=== PATIENT | male | born 1965 | race Two or more races ===

== ENCOUNTER 2016-08-15 20:46 | Inpatient (IN) | payer MEDICAID, OTHER ==
[~2016-08-15] VITALS: Ht 167.6 cm; Wt 95.3 kg
--- NOTE | 2016-08-15 20:47 | NUR ---
PT "WAS IN HOLDING CELL AND STARTED THREATENING TO HARM SELF AND OTHERS". GOWNED PT . AWAITING MD ORDER.
[2016-08-15 21:10] LABS: BASOPHILS # (AUTO) 0.1 /CMM (0.0-0.2); BASOPHILS % (AUTO) 0.8 % (0.0-2.0); EOSINOPHILS # (AUTO) 0.3 /CMM (0.0-0.7); EOSINOPHILS % (AUTO) 4.1 % (0.0-6.0); HEMATOCRIT 45 % (39-51); HEMOGLOBIN 14.8 g/dL (13.5-17.5); LYMPHOCYTES # (AUTO) 2.2 /CMM (0.8-4.8); LYMPHOCYTES % (AUTO) 27.7 % (20.0-44.0); MEAN CORPUSCULAR HEMOGLOBIN 31 PG (26.0-33.0); MEAN CORPUSCULAR HGB CONC 33 g/dl (31.0-36.0); MEAN CORPUSCULAR VOLUME 94 fL (80-96); MONOCYTES # (AUTO) 0.8 /CMM (0.1-1.30); MONOCYTES % (AUTO) 10.2 % (2.0-12.0); NEUTROPHILS # (AUTO) 4.7 /CMM (1.8-8.9); NEUTROPHILS % (AUTO) 57.2 % (43.0-81.0); PLATELET COUNT (AUTO) 254 /CMM (150-450); RDW COEFFICIENT OF VARIATION 12.7 (11.5-15.0); RED BLOOD CELL COUNT(AUTO) 4.82 MIL/uL (4.5-6.0); WHITE BLOOD COUNT (AUTO) 8.1 K/uL (4.3-11.0)
[2016-08-15 21:24] LABS: ALANINE AMINOTRANSFERASE 34 U/L (12-78); ALBUMIN 2.9 g/dL (3.4-5.0); ALCOHOL, BLOOD 111 mg/dL (0-0); ALKALINE PHOSPHATASE 78 U/L (46-116); ASPARTATE AMINOTRANSFERASE 46 U/L (15-37); BILIRUBIN,DIRECT 0.1 mg/dL (0.0-0.2); BILIRUBIN,TOTAL 0.3 mg/dL (0.2-1.0); CALCIUM, SERUM 8.2 mg/dL (8.5-10.1); CARBON DIOXIDE 21 mmol/L (21-32); CHLORIDE 109 mmol/L (98-107); CREATININE 2.1 mg/dL (0.6-1.3); GLUCOSE 102 mg/dL (74-106); POTASSIUM 3.8 mmol/L (3.5-5.1); SALICYLATE 3.9 mg/dL (2.8-20.0); SODIUM SERUM 142 mmol/L (136-145); UREA NITROGEN, BLOOD 27 mg/dL (7-18)
[2016-08-15 21:25] LABS: ACETAMINOPHEN < 10 ug/ml (10-30)
--- NOTE | 2016-08-15 21:28 | NUR ---
PT COMBATIVE, WILL WAIT UNTIL READY FOR CT SCAN. DR. GARZA IS AWARE.
--- NOTE | 2016-08-15 22:07 | NUR ---
CALLED NURSING SUP. FOR TELE BED
--- NOTE | 2016-08-15 22:27 | NUR ---
PT ASSIGNED TO 306-2
--- NOTE | 2016-08-15 22:57 | NUR ---
DR.RUTHERFORD EDU IRON HANDLER
[2016-08-15] MEDS ORDERED: LITH300T PO (23:10)
[2016-08-15] MEDS ORDERED: LISI-603 PO (23:10)
[2016-08-15] MEDS ORDERED: QUET200T PO (23:10)
[2016-08-15] MEDS ORDERED: LAMO100T PO (23:10)
[2016-08-15] MEDS ORDERED: ASPI81TA44 PO (23:10)
[2016-08-15] MEDS ORDERED: SIMV20TA6 PO (23:10)
[2016-08-15] MEDS ORDERED: METO25TA6 PO (23:10)
[2016-08-15] MEDS ORDERED: GEMF600T3 PO (23:10)
[2016-08-15] MEDS ORDERED: CLON0.1T PO (23:10)
[2016-08-15] MEDS ORDERED: AMLO10TA2 PO (23:10)
--- NOTE | 2016-08-15 23:13 | NUR ---
GAVE REPORT TO SRINIVASAN 306-2 DX ACUTE RENAL INSUFFICIENCY, ALTERED MENTAL STATUS. TELEMETRY. TRANSFER VIA ACLS PROTOCOL. DR SON ADMITTING.
[2016-08-15 23:30] VITALS: BP 161/106
[2016-08-15] MEDS ORDERED: MAGNESIUM HYDROXIDE 30 ML UDC PO PRN (23:30)
[2016-08-15] MEDS ORDERED: ONDANSETRON HCL/PF 4 MG/2 ML VIAL IVP PRN (23:30)
[2016-08-15] MEDS ORDERED: ZOLPIDEM TARTRATE 5 MG TABLET PO PRN (23:30)
[2016-08-15] MEDS ORDERED: HYDROCODONE/APAP 5/325MG 1 EACH TABLET PO PRN (23:30)
[2016-08-15] MEDS ORDERED: Z GUARD REMEDY 2 OZ OINT TP PRN (23:30)
[2016-08-15] MEDS ORDERED: MAG HYDROX/AL HYDROX/SIMETH 30 ML UDC PO PRN (23:30)
--- NOTE | 2016-08-15 23:30 | NUR ---
tele/rn opening notes new admitted patient arrived on a gurney requiring restraints due to being combative/aggressive. report received that patient "was in holding cell and started threatening to harm self and others" with dx of ams/arf. require a sitter ans soft restraints. , patient sleeping upon admission with elevated bp sbp over 190. md inform and ordered for ivp hydralazine be given.home meds reconciled by pantographer. will continue monitoring. inventory list of belongings.will continue to monitor.
[2016-08-16] VITALS (10 sets, daily range): BP systolic 94–205; BP diastolic 50–114
[2016-08-16] MEDS ORDERED: CLONIDINE HCL 0.1 MG TABLET PO PRN
[2016-08-16] MEDS ORDERED: hydrALAZINE HCL IV 20 MG VIAL ONE (00:27)
[2016-08-16] MEDS: hydrALAZINE HCL IV 20 MG VIAL IV PRN ×3 (00:35→12:34)
--- NOTE | 2016-08-16 02:01 | NUR ---
tele/rn notes patient awake, alertx2. Verbalize needs and asked"what happened to me" able to respond and cooperate but talking to self and appears voicing out w/ period of anxiety/laughter/anger .monitoring and one on sitter.able to drink fluids and eat some crackers. b/p at 168/111 and pulse 87
[2016-08-16 02:35] LABS: APPEARANCE,URINE SL CLOUDY (CLEAR); BILIRUBIN,URINE NEGATIVE (NEGATIVE); BLOOD, URINE 3+ Ery/uL (NEGATIVE); COLOR,URINE YELLOW (YELLOW); KETONES,URINE NEGATIVE (NEGATIVE); LEUKOCYTE ESTERASE ,URINE NEGATIVE (NEGATIVE); NITRITE, URINE NEGATIVE (NEGATIVE); PROTEIN,URINE 3+ mg/dl (NEGATIVE); UGLUCOSE NEGATIVE (NEGATIVE); UROBILINOGEN,URINE 0.2 EU/dL (0.2)
[2016-08-16 02:41] LABS: BACTERIA,URINE None seen /HPF (None Seen); RBC,URINE 81-100 /HPF (0-2); SQUAMOUS EPITHELIAL CELL,UR Rare /HPF (None Seen)
[2016-08-16] MEDS ORDERED: LORAZEPAM INJ 2 MG/ML VIAL ONE (02:57)
[2016-08-16] MEDS: LORAZEPAM INJ 2 MG/ML VIAL IV PRN ×2 (03:02→11:43)
[2016-08-16] MEDS ORDERED: IV NS 0.9% 1,000 ML ONE (03:17)
[2016-08-16] MEDS ORDERED: IV SET PRIMARY PUMP SET 1 EA INFUS.SET MC ONE (03:17)
[2016-08-16] MEDS: IV NS 0.9% 1,000 ML IV PRN ×3 (03:24→23:47)
--- NOTE | 2016-08-16 03:30 | NUR ---
tele/rn notes patient observed and verbalized extreme pain muscle spasm/cramping in his lower legs. md contacted and ordered ativan as previuosly ordered. monitoring.
--- NOTE | 2016-08-16 06:21 | NUR ---
tele/rn notes patient in bed, monitoring for any s/s of agitation. observed hallucination, tremor, elevated htn and complaining of muscle cramps. when awake patient agitation and require assistance, episode of talking to self and period of elation, sadness and unease. tele monitoring at sr 80, alert, orientedx2, on iv fluids with ns running at 100cc/hr. ativan ivp given at 0300 img/0.5ml. able to use urinal. . restraint require as patient w/ combative/aggresive behavior.
[2016-08-16] MEDS: PANTOPRAZOLE 40 MG TABLET.DR PO SCH (07:30)
[2016-08-16 08:08] LABS: BASOPHILS % (AUTO) 0.5 % (0.0-2.0); EOSINOPHILS # (AUTO) 0.3 /CMM (0.0-0.7); EOSINOPHILS % (AUTO) 3.9 % (0.0-6.0); HEMATOCRIT 42 % (39-51); HEMOGLOBIN 14.5 g/dL (13.5-17.5); LYMPHOCYTES % (AUTO) 25.9 % (20.0-44.0); MEAN CORPUSCULAR HEMOGLOBIN 32 PG (26.0-33.0); MEAN CORPUSCULAR HGB CONC 35 g/dl (31.0-36.0); MEAN CORPUSCULAR VOLUME 94 fL (80-96); MONOCYTES # (AUTO) 0.7 /CMM (0.1-1.30); MONOCYTES % (AUTO) 8.7 % (2.0-12.0); NEUTROPHILS # (AUTO) 4.6 /CMM (1.8-8.9); PLATELET COUNT (AUTO) 220 /CMM (150-450); RDW COEFFICIENT OF VARIATION 13.9 (11.5-15.0); WHITE BLOOD COUNT (AUTO) 7.6 K/uL (4.3-11.0)
[2016-08-16 08:21] LABS: CALCIUM, SERUM 8.1 mg/dL (8.5-10.1); CREATININE 1.6 mg/dL (0.6-1.3); PHOSPHORUS 3.2 mg/dL (2.5-4.9); POTASSIUM 4.2 mmol/L (3.5-5.1)
--- NOTE | 2016-08-16 11:48 | NUR ---
RN NOTE PT RECEIVED PROTONIX 40 MG TAB, APRESOLINE 10 MG IV, ATIVAN 1 MG IV, CATAPRESS 0.1 MG 1 TAB, EARLIER THIS MORNING AROUND 0900, MEDS WERE SCANNED BUT COMPUTER SYSTEM DID NOT SAVE IT IN THE EMAR, HAD TO REENTER ADMINISTRATION MANUALLY AFTER I SPOKE WITH DEVONTE IN THE PHARMACY.
[2016-08-16] MEDS: ACETAMINOPHEN 325 MG TABLET PO PRN (12:34)
[2016-08-16] MEDS: AMLODIPINE BESYLATE 10 MG TABLET PO SCH (14:08)
[2016-08-16] MEDS: ASPIRIN EC 81 MG TABLET.DR PO SCH (14:08)
[2016-08-16] MEDS ORDERED: GEMFIBROZIL 600 MG TABLET PO SCH (16:30)
[2016-08-16] MEDS ORDERED: CLONIDINE HCL 0.1 MG TABLET PO SCH (17:00)
[2016-08-16] MEDS: METOPROLOL TARTRATE 25 MG TABLET PO SCH (17:10)
[2016-08-16] MEDS: QUETIAPINE FUMARATE 100 MG TABLET PO SCH (17:10)
[2016-08-16] MEDS: SIMVASTATIN 20 MG TABLET PO SCH (17:11)
--- NOTE | 2016-08-16 17:50 | NUR ---
RN NOTE FAXED FACE SHEET FOR DR TANG INTO [facility], PER BASEBALL PITCHER GARCIA REQUEST, PENDING HIS CONSULT FOR THE PT. ACCORDING TO POWER GENERATION PLANT OPERATOR HE RECEIVED THE FACE SHEET.
--- NOTE | 2016-08-16 17:57 | NUR ---
RN CLOSING NOTE PT AOX3, REMAINED CALM, SLEEPING INTERMITTENTLY, RESTRAINTS WERE OFF FOR MOST OF THE DAY, CO CRAMPS IN HIS THIGHS, BP HIGH CONTROLLED BY PRN BP MEDS, MED RECONCILIATION DONE, AWAITING FOR PSYCH EVAL. SITTER AT BEDSIDE.
--- NOTE | 2016-08-16 19:30 | NUR ---
MS/WASTE COTTON CLEANER; RECEIVED PT IN BED SLEEPING AT THIS TIME. PT ON HIS LT SIDE. BREATHING NON LABORED. IVF OF NS AT 100 ML / HOUR. SITTER IN THE ROOM. BED ON LOWER POSITION AND LOCKED FOR SAFETY. UPPER PART OF BED SIDE RAILS AR UP. CALL LIGHT WITHIN REACH. WILL CONTINUE TO MONITOR.
[2016-08-16] MEDS: LITHIUM CARBONATE (300 MG CAP) 300 MG CAPSULE PO SCH (21:43)
[2016-08-17 06:34] LABS: BASOPHILS % (AUTO) 0.4 % (0.0-2.0); EOSINOPHILS # (AUTO) 0.3 /CMM (0.0-0.7); EOSINOPHILS % (AUTO) 2.9 % (0.0-6.0); HEMATOCRIT 41 % (39-51); HEMOGLOBIN 13.9 g/dL (13.5-17.5); LYMPHOCYTES # (AUTO) 1.6 /CMM (0.8-4.8); LYMPHOCYTES % (AUTO) 15.2 % (20.0-44.0); MEAN CORPUSCULAR HEMOGLOBIN 32 PG (26.0-33.0); MEAN CORPUSCULAR HGB CONC 34 g/dl (31.0-36.0); MEAN CORPUSCULAR VOLUME 94 fL (80-96); MONOCYTES # (AUTO) 0.8 /CMM (0.1-1.30); MONOCYTES % (AUTO) 7.7 % (2.0-12.0); NEUTROPHILS # (AUTO) 7.7 /CMM (1.8-8.9); NEUTROPHILS % (AUTO) 73.8 % (43.0-81.0); PLATELET COUNT (AUTO) 193 /CMM (150-450); RDW COEFFICIENT OF VARIATION 13.7 (11.5-15.0); WHITE BLOOD COUNT (AUTO) 10.4 K/uL (4.3-11.0)
--- NOTE | 2016-08-17 06:55 | NUR ---
MS/FERTILIZER PROCESSING SUPERVISOR; PT SLEPT GOOD INTERVALS AND CALM. BREATHING NON LABORED. NO AGGRESSION NOTED. IVF ON PROGRESS. SITTER PRESENT AT ALL TIMES. VOIDED USED URINAL. CONTINUE TO MONITOR.
[2016-08-17 07:02] LABS: CALCIUM, SERUM 7.7 mg/dL (8.5-10.1); CREATININE 1.6 mg/dL (0.6-1.3)
--- NOTE | 2016-08-17 07:05 | NUR ---
MS RN OPENING NOTES RECEIVED PT. FROM NIGHTSHIFT NURSE IN STABLE CONDITION. PT. IS SLEEPING COMFORTABLY IN BED. SITTER HAJA AT BEDSIDE. NO SOB OR SIGNS OF DISTRESS NOTED. IV PRESENT ON LEFT FOREARM 20 G INTACT AND INFUSING NS @ 100ML/HR/ PT. TOLERATING INFUSION WELL. NO REDNESS OR SIGNS OF INFILTRATION PRESENT AT IV SITE. BED IN LOW LOCKED POSITION, SIDE RAILS UP X2, CALL LIGHT WITHIN REACH. WILL CONTINUE TO CLOSELY MONITOR.
[2016-08-17 08:00] VITALS: BP 142/75
[2016-08-17] MEDS: PANTOPRAZOLE 40 MG TABLET.DR PO SCH (08:52)
[2016-08-17] MEDS: METOPROLOL TARTRATE 25 MG TABLET PO SCH ×2 (08:52→17:08)
[2016-08-17] MEDS: AMLODIPINE BESYLATE 10 MG TABLET PO SCH (08:52)
[2016-08-17] MEDS: LamoTRIgine 100 MG TABLET PO SCH (08:52)
[2016-08-17] MEDS: ASPIRIN EC 81 MG TABLET.DR PO SCH (08:52)
[2016-08-17] MEDS: IV NS 0.9% 1,000 ML IV PRN ×2 (10:46→23:24)
[2016-08-17] MEDS: SIMVASTATIN 20 MG TABLET PO SCH (17:08)
[2016-08-17] MEDS: QUETIAPINE FUMARATE 100 MG TABLET PO SCH (17:08)
--- NOTE | 2016-08-17 18:39 | NUR ---
MS RN CLOSING NOTES PT. IN STABLE CONDITION. NO ACUTE CHANGES IN CONDITION DURING SHIFT. SITTER REMAINS AT BEDSIDE. ALL NEEDS MET AND ORDERS CARRIED OUT ACCORDINGLY. WILL ENDORSE TO NIGHTSHIFT NURSE FOR ABY
--- NOTE | 2016-08-17 19:15 | NUR ---
MS/CEMENTER OIL WELL; RECEIVED PT IN BED SLEEPING. BREATHING NON LABORED.IVF ON PROGRESS. SITTER PRESENT AT THE BEDSIDE FOR SAFETY. BED ON LOWER POSITION AND LOCKED FOR SAFETY. SIDE RAILS ARE UP FOR SAFETY. CONTINUE TO MONITOR. CALL LIGHT WITHIN REACH.
[2016-08-17 20:00] VITALS: BP 149/74
--- NOTE | 2016-08-17 20:35 | NUR ---
MS/KNOT BUMPER; I PLACED A CALL TO DR. SON FOR PT TEMP. 102.8 ; LADY FIRE CONTROL TECHNICIAN B SAID HE WILL PAGED HIM TO CALL [facility]. AWAITING.
--- NOTE | 2016-08-17 20:40 | NUR ---
MS/DRIVE THRU ORDER TAKER; DR. SON CALL BACK AND I NOTIFIED HIM PT WITH TEMP. OF 102.8 WITH ORDERS OF BLOOD CULTURE X 2 AND GIVE TYLENOL PREVIOUSLY ORDERED. CARRIED OUT. LAB. WAS CALLED FOR BLOOD CULTURE.
--- NOTE | 2016-08-17 21:00 | NUR ---
MS/[place]; LAB. TECH CAME TO DRAW BLOOD FOR CULTURE X2.
[2016-08-17] MEDS: ACETAMINOPHEN 325 MG TABLET PO PRN (21:06)
--- NOTE | 2016-08-17 21:10 | NUR ---
MS/POLICE STENOGRAPHER; TYLENOL 650 MG PO Q6 PRN GIVEN ORDERED . PT ENCOURAGED MORE PO INTAKE. COOLING MEASURES RENDERED.
[2016-08-17] MEDS: LITHIUM CARBONATE (300 MG CAP) 300 MG CAPSULE PO SCH (22:36)
--- NOTE | 2016-08-18 | NUR ---
MS/BLADE CHANGER; TEMP . RE CHECKED 98. 9.
--- NOTE | 2016-08-18 06:59 | NUR ---
MS/GLASS ARTIST; SLEPT AT GOOD INTERVALS. DENIES PAIN. IVF ON PROGRESS. PT. APPEARED CALM AND NO AGGRESSIONS LAST NIGHT . WILL ENDORSE TO THE DAY SHIFT NURSE.
[2016-08-18 08:00] VITALS: BP 148/83
[2016-08-18] MEDS ORDERED: QUETIAPINE FUMARATE 100 MG TABLET PO SCH (13:00)
[2016-08-18] MEDS: PANTOPRAZOLE 40 MG TABLET.DR PO SCH (13:11)
[2016-08-18] MEDS: LamoTRIgine 100 MG TABLET PO SCH (13:11)
[2016-08-18] MEDS: ASPIRIN EC 81 MG TABLET.DR PO SCH (13:11)
[2016-08-18] MEDS: METOPROLOL TARTRATE 25 MG TABLET PO SCH (13:15)
[2016-08-18] MEDS: AMLODIPINE BESYLATE 10 MG TABLET PO SCH (13:15)
[2016-08-18 13:16] VITALS: BP 165/96
[2016-08-18] MEDS ORDERED: QUET100T PO (14:10)
--- NOTE | 2016-08-18 16:18 | NUR ---
DISCHARGED TO HOME. IV REMOVED PATIENT DRESSED SELF. REMEMBERS WHERE HOUSE IS NEAR [place]. ALL BELONGINGS SENT WITH PATIENT.
== END 2016-08-18 15:35 | disposition home or self-care (01) | DRG 775 ==
LOC: ER 20:48 → TELE 23:00 → MED 08-16 10:01
PROVIDERS: ADMIT Internal Medicine; ATTEND Internal Medicine
DX: F10.129 Alcohol abuse with intoxication, unspecified (principal); N17.0 Acute kidney failure with tubular necrosis; I10 Essential (primary) hypertension; E11.9 Type 2 diabetes mellitus without complications; Y90.5 Blood alcohol level of 100-119 mg/100 ml; Z86.73 Personal history of transient ischemic attack (TIA), and cerebral infarction without residual deficits; E78.5 Hyperlipidemia, unspecified; F31.60 Bipolar disorder, current episode mixed, unspecified; Z79.899 Other long term (current) drug therapy; G31.2 Degeneration of nervous system due to alcohol; F19.20 Other psychoactive substance dependence, uncomplicated; R82.6 Abnormal urine levels of substances chiefly nonmedicinal as to source
CPT/HCPCS: 36415; 70450-TC; 80048-TC; 80076-TC; 80305; 81000-TC; 82962-TC; 83735-TC; 84100-TC; 85025-TC; 87040-TC; 87081-TC; A4606; G0480; J0360; J2060; J7030; Z7610

== ENCOUNTER 2016-11-13 10:55 | Emergency (ER) | payer MEDICAID, OTHER ==
[~2016-11-13] VITALS: Ht 177.8 cm; Wt 104.3 kg
[~2016-11-13 10:55] MED LIST: AMLO10TA2 PO; ASPI81TA44 PO; CLON0.1T PO; GEMF600T3 PO; LAMO100T PO; LITH300T PO; METO25TA6 PO; QUET100T PO; SIMV20TA6 PO
--- NOTE | 2016-11-13 11:00 | NUR ---
PHOEBE FROM A PSYCHIATRIC HOME DT WITNESSED SYNCOPAL EPISODE. PATIENT RECEIVED AWAKE AND ALERT, APPEARS IN NO APPARENT DISTRESS. RESPIRATION EVENA AND UNLABORED. SKIN IS WARM TO TOUCH. PATIENT IS AFEBRILE. VSS. GOWNED PT AND PLACED TO TELE MONITOR. PENDING MD EVALUATION
[2016-11-13] MEDS ORDERED: ONDANSETRON HCL/PF 4 MG/2 ML VIAL IVP ONE (11:30)
[2016-11-13] MEDS ORDERED: IV NS 0.9% 1,000 ML BAG IV ONE (11:30)
[2016-11-13] MEDS ORDERED: ONDANSETRON HCL/PF 4 MG/2 ML VIAL ONE (11:33)
--- NOTE | 2016-11-13 11:40 | NUR ---
PT MEDICATED ORDERED. TACTICAL AIR CONTROL PARTY AT FOR BLOOD DRAW.
[2016-11-13 11:42] LABS: BASOPHILS % (AUTO) 0.2 % (0.0-2.0); EOSINOPHILS # (AUTO) 0.1 /CMM (0.0-0.7); EOSINOPHILS % (AUTO) 1.4 % (0.0-6.0); HEMATOCRIT 43 % (39-51); HEMOGLOBIN 14.4 g/dL (13.5-17.5); LYMPHOCYTES # (AUTO) 1.4 /CMM (0.8-4.8); LYMPHOCYTES % (AUTO) 15.7 % (20.0-44.0); MEAN CORPUSCULAR HEMOGLOBIN 31 PG (26.0-33.0); MEAN CORPUSCULAR HGB CONC 33 g/dl (31.0-36.0); MEAN CORPUSCULAR VOLUME 92 fL (80-96); MONOCYTES # (AUTO) 0.5 /CMM (0.1-1.30); MONOCYTES % (AUTO) 5.6 % (2.0-12.0); NEUTROPHILS # (AUTO) 6.6 /CMM (1.8-8.9); NEUTROPHILS % (AUTO) 77.1 % (43.0-81.0); PLATELET COUNT (AUTO) 248 /CMM (150-450); RDW COEFFICIENT OF VARIATION 13.1 (11.5-15.0); RED BLOOD CELL COUNT(AUTO) 4.73 MIL/uL (4.5-6.0); WHITE BLOOD COUNT (AUTO) 8.6 K/uL (4.3-11.0)
--- NOTE | 2016-11-13 11:44 | NUR ---
PT TAKEN TO CT.
[2016-11-13 11:52] LABS: CALCIUM, SERUM 7.9 mg/dL (8.5-10.1); CREATININE 2.6 mg/dL (0.6-1.3); POTASSIUM 4.3 mmol/L (3.5-5.1)
[2016-11-13 11:57] LABS: ALBUMIN 2.5 g/dL (3.4-5.0); BILIRUBIN,DIRECT 0.1 mg/dL (0.0-0.2); BILIRUBIN,TOTAL 0.2 mg/dL (0.2-1.0)
--- NOTE | 2016-11-13 14:00 | NUR ---
IV removed. Catheter intact and site benign. Pressure and 4x4 applied to site. No bleeding noted.
--- NOTE | 2016-11-13 14:52 | NUR ---
Patient discharged to home in stable condition. Written and verbal after care instructions given. Patient verbalizes understanding of instruction.
[2016-11-13 14:54] VITALS: BP 108/74
== END 2016-11-13 14:55 | disposition home or self-care (01) ==
LOC: ER 11:00
DX: R55 Syncope and collapse (principal); I10 Essential (primary) hypertension; N28.9 Disorder of kidney and ureter, unspecified; Z79.82 Long term (current) use of aspirin
CPT/HCPCS: 36415; 70450; 71010; 80048; 80076; 85025; 93005; 96361; 96374; 99285; A4606; J2405; J7030; Z7610

== ENCOUNTER 2016-12-19 20:57 | Inpatient (IN) | payer OTHER ==
[~2016-12-19] VITALS: Ht 177.8 cm; Wt 113.4 kg
--- NOTE | 2016-12-19 21:05 | NUR ---
Ekaterina antunez in ED - 12/19/16 at 2119 by MATT URINE COLLECTED. CALLED LAB FOR DIAMOND CLEANER.
--- NOTE | 2016-12-19 21:08 | NUR ---
BB RA102; SI WITHOUT PLAN, PT AOX3, PT ADMITS TO METH YESTERDAY AND DRINKING EALIER TODAY. RR EVEN AND UNLABORED. NO SOB NOTED. NAD NOTED. NO NVD AT THIS TIME. PT PLACED ON MONITOR WAITING FOR MD DSOUZA.
--- NOTE | 2016-12-19 21:10 | NUR ---
URINE COLLECTED. CALLED LAB FOR METALLURGIST HELPER.
--- NOTE | 2016-12-19 21:29 | NUR ---
LAB AT BEDSIDE FOR BLOOD DRAW
[2016-12-19 21:30] LABS: BASOPHILS # (AUTO) 0.1 /CMM (0.0-0.2); BASOPHILS % (AUTO) 1.3 % (0.0-2.0); EOSINOPHILS # (AUTO) 0.4 /CMM (0.0-0.7); EOSINOPHILS % (AUTO) 4.1 % (0.0-6.0); HEMATOCRIT 45 % (39-51); LYMPHOCYTES # (AUTO) 1.7 /CMM (0.8-4.8); LYMPHOCYTES % (AUTO) 17.2 % (20.0-44.0); MEAN CORPUSCULAR HEMOGLOBIN 31 PG (26.0-33.0); MEAN CORPUSCULAR HGB CONC 33 g/dl (31.0-36.0); MEAN CORPUSCULAR VOLUME 93 fL (80-96); MONOCYTES # (AUTO) 0.8 /CMM (0.1-1.30); MONOCYTES % (AUTO) 7.6 % (2.0-12.0); NEUTROPHILS # (AUTO) 7.1 /CMM (1.8-8.9); NEUTROPHILS % (AUTO) 69.8 % (43.0-81.0); PLATELET COUNT (AUTO) 211 /CMM (150-450); RDW COEFFICIENT OF VARIATION 13.1 (11.5-15.0); RED BLOOD CELL COUNT(AUTO) 4.81 MIL/uL (4.5-6.0); WHITE BLOOD COUNT (AUTO) 10.1 K/uL (4.3-11.0)
[2016-12-19 21:51] LABS: CALCIUM, SERUM 8.8 mg/dL (8.5-10.1); CARBON DIOXIDE 22 mmol/L (21-32); CHLORIDE 108 mmol/L (98-107); CREATININE 3.2 mg/dL (0.6-1.3); GLUCOSE 118 mg/dL (74-106); POTASSIUM 4.6 mmol/L (3.5-5.1); SODIUM SERUM 137 mmol/L (136-145); UREA NITROGEN, BLOOD 42 mg/dL (7-18)
[2016-12-19 21:57] LABS: ALANINE AMINOTRANSFERASE 55 U/L (12-78); ALBUMIN 2.9 g/dL (3.4-5.0); ALCOHOL, BLOOD 37 mg/dL (0-0); ALKALINE PHOSPHATASE 71 U/L (46-116); ASPARTATE AMINOTRANSFERASE 66 U/L (15-37); BILIRUBIN,DIRECT 0.1 mg/dL (0.0-0.2); BILIRUBIN,TOTAL 0.1 mg/dL (0.2-1.0); SALICYLATE 2.9 mg/dL (2.8-20.0); TOTAL PROTEIN, SERUM 6.6 g/dL (6.4-8.2)
[2016-12-19 21:58] LABS: ACETAMINOPHEN < 2 ug/ml (10-30)
[2016-12-19] MEDS ORDERED: OLANZAPINE 10 MG VIAL IM ONE ×2 (22:00→22:04)
[2016-12-19] MEDS ORDERED: IV NS 0.9% 1,000 ML BAG IV ONE (22:30)
[2016-12-19 22:42] LABS: APPEARANCE,URINE CLEAR (CLEAR); BILIRUBIN,URINE NEGATIVE (NEGATIVE); BLOOD, URINE NEGATIVE Ery/uL (NEGATIVE); COLOR,URINE YELLOW (YELLOW); KETONES,URINE NEGATIVE (NEGATIVE); LEUKOCYTE ESTERASE ,URINE NEGATIVE (NEGATIVE); NITRITE, URINE NEGATIVE (NEGATIVE); PROTEIN,URINE 3+ mg/dl (NEGATIVE); UGLUCOSE NEGATIVE (NEGATIVE); UROBILINOGEN,URINE 0.2 EU/dL (0.2)
[2016-12-19 23:15] LABS: BACTERIA,URINE None seen /HPF (None Seen); RBC,URINE NONE SEEN /HPF (0-2); SQUAMOUS EPITHELIAL CELL,UR Few /HPF (None Seen); WBC,URINE 0-2 /HPF (0-3)
[2016-12-20] MEDS ORDERED: Magnesium 1 GM/2 ML VIAL IV ONE (02:00)
[2016-12-20] MEDS ORDERED: IV NS 0.9% 1,000 ML BAG IV ONE ×2 (02:00→03:00)
[2016-12-20] MEDS ORDERED: Magnesium 1GM/D5W 100ML PREMIX 100 ML IV ONE (02:03)
--- NOTE | 2016-12-20 02:08 | NUR ---
LAB AT BEDSIDE FOR BLOOD DRAW.
[2016-12-20 02:35] LABS: CALCIUM, SERUM 7.6 mg/dL (8.5-10.1); CREATININE 2.8 mg/dL (0.6-1.3); POTASSIUM 4.7 mmol/L (3.5-5.1)
--- NOTE | 2016-12-20 03:06 | NUR ---
DR. CURRAN AT BEDSIDE FOR EVAL. PT STATES HE DENIES HI/ SI AT THIS TIME.
--- NOTE | 2016-12-20 05:59 | NUR ---
LAB AT BEDSIDE FOR BLOOD DRAW.
[2016-12-20 06:19] LABS: CREATININE 2.7 mg/dL (0.6-1.3)
--- NOTE | 2016-12-20 06:19 | NUR ---
SPOKE TO CARLOS FROM POISON CONTROL. PER CARLOS RECOMMENDS PT WITH CON'T FLUIDS AND REPEAT EKG. DR. BELL MADE AWARE.
--- NOTE | 2016-12-20 07:17 | NUR ---
REPORT GIVEN TO JULIÁN TYSON FOR ABY.
[2016-12-20] MEDS ORDERED: IV NS 0.9% 1,000 ML IV ONE (08:00)
--- NOTE | 2016-12-20 08:00 | NUR ---
PANEL ON-CALL PAGED
[2016-12-20] MEDS ORDERED: ACETAMINOPHEN 325 MG TABLET PO PRN (08:30)
[2016-12-20] MEDS ORDERED: MAGNESIUM HYDROXIDE 30 ML UDC PO PRN (08:30)
[2016-12-20] MEDS ORDERED: Z GUARD REMEDY 2 OZ OINT TP PRN (08:30)
[2016-12-20] MEDS ORDERED: ZOLPIDEM TARTRATE 5 MG TABLET PO PRN (08:30)
[2016-12-20] MEDS ORDERED: ONDANSETRON HCL/PF 4 MG/2 ML VIAL IVP PRN (08:30)
[2016-12-20] MEDS ORDERED: MAG HYDROX/AL HYDROX/SIMETH 30 ML UDC PO PRN (08:30)
[2016-12-20] MEDS ORDERED: HYDROCODONE/APAP 5/325MG 1 EACH TABLET PO PRN (08:30)
--- NOTE | 2016-12-20 09:00 | NUR ---
MS PROCESSOR INSPECTOR NOTE PATIENT IS ALERT AND ORIENTED x2-3. NO PAIN AT THIS TIME. CALL LIGHT WITHIN REACH. SAFETY MEASURES IMPLEMENTED. 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 NO THOUGHTS OR PLAN FOR SUICIDAL IDEATION AT THIS TIME. NO THOUGHTS OF HURTING OTHERS AT THIS TIME. ALL BELONGINGS WITH PATIENT AT BEDSIDE. ABLE TO COMMUNICATE NEE.DS PATIENT HAS NO KNOWN ALLERGIES, HISTORY OF SUBSTANCE ABUSE, BIPOLAR, ANXIETY, SUICIDAL IDEATION, SEIZURES AND HYPERTENSION. SEIZURE PRECAUTIONS IMPLEMENTED. SITTER AT BEDSIDE FOR SAFETY. ABLE TO AMBULATE. REGULAR DIET. IV ON RIGHT AC INTACT AND PATENT NO REDNESS OR SWELLING NOTED. NO FLUIDS AT THIS TIME. AWAITING MD ORDERS. FLU SHOT RECEIVED A MONTH AGO. HISTORY OF SMOKING. PSYCH CONSULT IN PLACE WITH DR. HARDING. WILL CONTINUE TO MONITOR THROUGHOUT SHIFT
[2016-12-20] MEDS: ASPIRIN EC 81 MG TABLET.DR PO SCH (10:09)
[2016-12-20] MEDS: METOPROLOL TARTRATE 25 MG TABLET PO SCH ×2 (10:09→17:25)
[2016-12-20] MEDS: AMLODIPINE BESYLATE 10 MG TABLET PO SCH (10:09)
[2016-12-20] MEDS: LamoTRIgine 100 MG TABLET PO SCH (10:09)
[2016-12-20] MEDS: QUETIAPINE FUMARATE 100 MG TABLET PO SCH ×3 (10:10→17:21)
[2016-12-20] MEDS: CLONIDINE HCL 0.1 MG TABLET PO SCH ×2 (10:10→17:25)
--- NOTE | 2016-12-20 10:20 | NUR ---
MS RN NOTE PATIENT TRANSFERRED FROM 312-2 TO 304-1. ALL BELONGINGS AT BEDSIDE. PATIENT IS OKAY, NO DISTRESS.
--- NOTE | 2016-12-20 12:03 | NUR ---
MS RN NOTE INFORMED BY THREE RESPIRATORY THERAPISTS THAT PATIENT IS REFUSING STAT ABG'S. PATIENT BECAME AGRESSIVE, PUNCHING AND TRYING TO HIT THE RT'S. EXPLAINED TO PATIENT THE IMPORTANCE OF ABG TEST. PATIENT REFUSING TO HAVE IT DONE AND BEGAN TO YELL. WILL INFORM MD ABOUT PATIENT REFUSING ABG.
--- NOTE | 2016-12-20 12:07 | NUR ---
RT NOTE PT COMBATIVE WHEN ATTEMPTING TO DRAW ABG MULTIPLE TIMES. RN AWARE.
[2016-12-20] MEDS: IV 1/2NS 1000 ML 1,000 ML IV PRN (14:35)
[2016-12-20 16:00] VITALS: BP 110/68
[2016-12-20] MEDS: SIMVASTATIN 20 MG TABLET PO SCH (17:21)
[2016-12-20] MEDS: GEMFIBROZIL 600 MG TABLET PO SCH (17:21)
--- NOTE | 2016-12-20 18:20 | NUR ---
MS RN CLOSING NOTE PATIENT IS ALERT AND ORIENTED x4. NO PAIN AT THIS TIME. NO SOB OR DISTRESS NOTED. ON ROOM AIR, TOLERATING WELL O2 SAT AT 100%. PERIODS OF CONFUSION. SEIZURE PRECAUTION IMPLEMENTED. ABLE TO COMMUNICATE NEEDS. IV ON RIGHT AC INTACT AND PATENT NO REDNESS OR SWELLING NOTED. PATIENT REFUSED STAT ABGS, BECAME AGGRESSIVE WHEN RT'S WERE TRYING TO GET TEST DONE. PATIENT IS HAVING SHAKING/ TREMORS WHICH MD IS AWARE ABOUT. RECEIVED CALL FROM POISON CONTROL TO MONITOR FOR LITHIUM TOXICITY SIDE EFFECTS. SITTER AT BEDSIDE FOR SAFETY. NO THOUGHTS OF SI/ HI. CT WITHOUT CONTRAST DONE, PSYCH EVALUATION DONE WITH DR. HARDING. WILL ENDORSE TO METEOROLOGICAL AIDE NURSE FOR ABY
[2016-12-20 20:00] VITALS: BP 113/66
--- NOTE | 2016-12-21 06:18 | NUR ---
MS RN NOTES AWAKE & RESPONSIVE. NOT IN ANY DISTRESS. NO SOB NOTED. DENIES ANY PAIN OR DISCOMFORT AT THIS TIME. WITH IVF INFUSING WELL. MONITORED ACCORDINGLY. CALL LIGHT WITHIN REACH. BED IN LOWEST POSITION. SR UP X 2 FOR SAFETY WITH SITTER AT BEDSIDE. WILL ENDORSE TO NEXT SHIFT.
[2016-12-21 06:32] LABS: BASOPHILS % (AUTO) 0.5 % (0.0-2.0); EOSINOPHILS # (AUTO) 0.5 /CMM (0.0-0.7); EOSINOPHILS % (AUTO) 5.7 % (0.0-6.0); HEMATOCRIT 40 % (39-51); HEMOGLOBIN 13.3 g/dL (13.5-17.5); LYMPHOCYTES # (AUTO) 1.9 /CMM (0.8-4.8); LYMPHOCYTES % (AUTO) 20.8 % (20.0-44.0); MEAN CORPUSCULAR HEMOGLOBIN 32 PG (26.0-33.0); MEAN CORPUSCULAR HGB CONC 33 g/dl (31.0-36.0); MEAN CORPUSCULAR VOLUME 95 fL (80-96); MONOCYTES # (AUTO) 0.6 /CMM (0.1-1.30); MONOCYTES % (AUTO) 6.6 % (2.0-12.0); NEUTROPHILS # (AUTO) 6.1 /CMM (1.8-8.9); NEUTROPHILS % (AUTO) 66.4 % (43.0-81.0); PLATELET COUNT (AUTO) 171 /CMM (150-450); RDW COEFFICIENT OF VARIATION 14.5 (11.5-15.0); RED BLOOD CELL COUNT(AUTO) 4.22 MIL/uL (4.5-6.0); WHITE BLOOD COUNT (AUTO) 9.2 K/uL (4.3-11.0)
[2016-12-21 06:50] LABS: ALBUMIN 2.5 g/dL (3.4-5.0); BILIRUBIN,TOTAL 0.2 mg/dL (0.2-1.0); CALCIUM, SERUM 8.3 mg/dL (8.5-10.1); CREATININE 2.8 mg/dL (0.6-1.3); MAGNESIUM 2.8 mg/dL (1.8-2.4); PHOSPHORUS 3.6 mg/dL (2.5-4.9); TOTAL PROTEIN, SERUM 5.9 g/dL (6.4-8.2)
--- NOTE | 2016-12-21 07:36 | NUR ---
- RN NOTES; - PATIENT SLEEPING SOUNDLY, CALL LIGHT WITHIN REACH, IV connected to patient .i
[2016-12-21] MEDS: GEMFIBROZIL 600 MG TABLET PO SCH ×2 (07:58→17:14)
[2016-12-21 08:00] VITALS: BP 135/84
[2016-12-21] MEDS: LamoTRIgine 100 MG TABLET PO SCH (08:22)
[2016-12-21] MEDS: AMLODIPINE BESYLATE 10 MG TABLET PO SCH (08:22)
[2016-12-21] MEDS: METOPROLOL TARTRATE 25 MG TABLET PO SCH ×2 (08:23→17:00)
[2016-12-21] MEDS: ASPIRIN EC 81 MG TABLET.DR PO SCH (08:23)
[2016-12-21] MEDS: CLONIDINE HCL 0.1 MG TABLET PO SCH ×2 (08:23→17:00)
[2016-12-21] MEDS: QUETIAPINE FUMARATE 100 MG TABLET PO SCH ×3 (09:10→17:15)
--- NOTE | 2016-12-21 13:09 | NUR ---
- RECEIVED A LITHIUM LEVEL FROM LAB = 2.28 WHICH IS DROPPING THIS TIME, ATTEMPTED TO LEAVE A PHONE MESSAGE TO SEC . OF THE [employer] GROUP TO HAVE DR. MACDONALD RETURN CALL FROM [address] [place] [address]. PATIENT STILL HAS SHAKES BUT OCCASIONALLY.
[2016-12-21] MEDS: IV 1/2NS 1000 ML 1,000 ML IV PRN ×2 (13:58→23:24)
[2016-12-21 16:15] VITALS: BP 109/73
[2016-12-21] MEDS: SIMVASTATIN 20 MG TABLET PO SCH (17:15)
--- NOTE | 2016-12-21 18:21 | NUR ---
RN CLOSING NOTES: - PATIENT REMAINED TO BE CALM, LESS SHAKES IF ON BED, ONGOING IV INFUSING VIA PUMP, HAD BEEN SPOONFED FOR DINNER DUE TO THE SHAKES.SITTER AT BEDSIDE, OCCASIONALLY HAD INCONTINENCE .
--- NOTE | 2016-12-21 19:30 | NUR ---
RN MS - INITIAL NOTES PATIENT IN BED CURRENTLY ASLEEP. NO S/S OF SOB OR ANY DISCOMFORT NOTED. IV FLUID INFUSING. 1:1 SITTER AT BEDSIDE. WILL CONTINUE TO MONITOR PATIENT.
[2016-12-21 20:00] VITALS: BP 108/70
--- NOTE | 2016-12-22 08:00 | NUR ---
RN MS OPENING NOTES PT IN BED RESTING. NO APPARENT S/S OF PAIN OR DISTRESS. IV FLUID INFUSING, PT TOLERATING WELL. 1:1 SITTER AT BEDSIDE. CALL LIGHT WITHIN REACH.
[2016-12-22] MEDS: AMLODIPINE BESYLATE 10 MG TABLET PO SCH (10:14)
[2016-12-22] MEDS: LamoTRIgine 100 MG TABLET PO SCH (10:14)
[2016-12-22] MEDS: QUETIAPINE FUMARATE 100 MG TABLET PO SCH ×3 (10:15→17:04)
[2016-12-22] MEDS: GEMFIBROZIL 600 MG TABLET PO SCH ×2 (10:16→17:04)
[2016-12-22] MEDS: METOPROLOL TARTRATE 25 MG TABLET PO SCH ×2 (10:16→17:05)
[2016-12-22] MEDS: ASPIRIN EC 81 MG TABLET.DR PO SCH (10:17)
[2016-12-22] MEDS: CLONIDINE HCL 0.1 MG TABLET PO SCH ×2 (10:17→17:04)
--- NOTE | 2016-12-22 13:35 | NUR ---
RN MS NOTES AT 1300 GENERAL MILLING SUPERINTENDENT REPORTED THAT PT HAD A FALL INCIDENT INSIDE HIS BATHROOM, PT WAS ASSISTED TO BED, BODY CHECK DONE, NO PHYSICAL INJURY NOTED, PT STATED THAT HE HIT HIS HEAD AND LEFT ARM, PT HAS NO COMPLAIN OF PAIN OR ANY DISCOMFORT, DENIES HEADACHE OR DIZZINESS, VITAL SIGNS TAKEN AND RECORDED, DR. MACDONALD INFORMED OF INCIDENT, ORDERED TO MONITOR PT CLOSELY, SITTER AT BEDSIDE, BED ALARM ON AT ALL TIMES, SAFETY PRECAUTIONS OBSERVED, SAFETY EDUCATION PROVIDED TO PT AND SITTER, VERBALIZED UNDERSTANDING, WILL CONTINUE TO MONITOR PT CLOSELY.
[2016-12-22] MEDS: SIMVASTATIN 20 MG TABLET PO SCH (18:19)
--- NOTE | 2016-12-22 19:09 | NUR ---
RN CLOSING NOTES PT IS RESTING IN BED. PT HAS BEEN TEMPORARY MOVED TO ROOM 317 WITH 1:1 SITTER. NO S/S OF HEADACHE, DIZZINESS OR CHANGE IN LOC SINCE FALL. KEPT PT CALM AND COMFORTABLE.
--- NOTE | 2016-12-22 19:45 | NUR ---
RN OPENING NOTES RECEIVED REPORT FROM RUFINO FAIR/ARIEL. Pt TRANSFERRED TO ROOM 317 FROM 304-1. FOUND Pt AWAKE, RESTING IN BED. Pt IS A/OX3, WITH PERIODS OF CONFUSION. NO S/S OF ACUTE DISTRESS OR SOB NOTED. NO C/O PAIN AT THIS TIME. IV ACCESS ON LAC #18G, 1/2NS @75ML/HR. WITH 1:[address]TER[address] SAF[address] ME[address] IN PL[address]. BED LOW, LOCKED, HOB ELEVATED, SIDE RAILS UP, CALL LIGHT AND BEDSIDE TABLE WITHIN REACH. WILL CONTINUE TO MONITOR Pt THROUGHOUT THE NIGHT FOR SAFETY.
[2016-12-22 20:00] VITALS: BP 123/77
[2016-12-23] MEDS: IV 1/2NS 1000 ML 1,000 ML IV PRN ×2 (01:31→23:53)
--- NOTE | 2016-12-23 07:45 | NUR ---
RN OPENING NOTES RECEIVED PATIENT SLEEPING IN BED, AROUSED TO VERBAL AND TACTILE STIMULI. IN NO APPARENT DISTRESS, RESPIRATIONS UNLABORED, NO S/S OF PAIN OR DISCOMFORT NOTED. IV TO LAC #18G INTACT INFUSING 1/2NS @75ML/HR. WITH 1:1 SITTER FOR SAFETY BED LOW, LOCKED, HOB ELEVATED, SIDE RAILS UP, CALL LIGHT WITHIN EASY REACH. WILL CONTINUE TO MONITOR.
[2016-12-23 08:00] VITALS: BP 147/96
[2016-12-23] MEDS: GEMFIBROZIL 600 MG TABLET PO SCH ×2 (08:43→16:58)
[2016-12-23] MEDS: ASPIRIN EC 81 MG TABLET.DR PO SCH (08:43)
[2016-12-23] MEDS: AMLODIPINE BESYLATE 10 MG TABLET PO SCH (08:44)
[2016-12-23] MEDS: QUETIAPINE FUMARATE 100 MG TABLET PO SCH ×3 (08:44→16:58)
[2016-12-23] MEDS: CLONIDINE HCL 0.1 MG TABLET PO SCH ×2 (08:44→16:58)
[2016-12-23] MEDS: LamoTRIgine 100 MG TABLET PO SCH (08:45)
[2016-12-23] MEDS: METOPROLOL TARTRATE 25 MG TABLET PO SCH ×2 (08:45→16:52)
--- NOTE | 2016-12-23 13:00 | NUR ---
MS/RN NOTES PATIENT NOTED TO BE INCREASINGLY SLEEPY, LETHARGIC HELD SEROQUEL 150MG.
[2016-12-23 16:00] VITALS: BP 136/85
--- NOTE | 2016-12-23 17:06 | NUR ---
MS/RN NOTES PATIENT STABLE, AWAKE, APPEARS CALM AND COMFORTABLE. NO APRARENT DISTRESS NOTED. ALL MEDICATIONS GIVEN, COOPERATIVE WITH PATIENT CARE. WILL CONTINUE TO MONITOR
[2016-12-23] MEDS: SIMVASTATIN 20 MG TABLET PO SCH (18:33)
--- NOTE | 2016-12-23 18:48 | NUR ---
MS/RN NOTES PATIENT RESTING IN BED COMFORTABLY, NO S/S OF DISTRESS/DISCOMFORT NOTED. NO SIGNIFICANT CHANGES IN CONDITION, STABLE AT THIS TIME. ALL DUE MEDICATIONS GIVEN , ALL NEEDS MET AND ATTENDED. IV FLUIDS INFUSING WELL. IV CHANGED TO LEFT WRIST 22 G INTACT AND PATENT. SAFETY MEASURES RENDERED, CALL LIGHT PLACED WITHIN REACH. WILL ENDORSE CARE TO BACKEND PYTHON DEVELOPER FOR ABY
--- NOTE | 2016-12-23 19:30 | NUR ---
RN NOTES RECEIVED PATIENT IN BED ASLEEP, EASILY AROUSABLE. AO X 3, ABLE TO MAKE NEEDS KNOWN. NO ACUTE DISTRESS NOTED. DENIES ANY PAIN AT THIS TIME. IV SITE PATENT, INTACT; FLUSHED. SAFETY REMINDERS GIVEN. ON LOW BED WITH BILATERAL UPPER SIDE RAILS UP. CALL LIGHT WITHIN EASY REACH. WILL CONTINUE TO MONITOR.
[2016-12-23 20:00] VITALS: BP 121/79
--- NOTE | 2016-12-23 21:50 | NUR ---
JULIÁN NOTES DR. SON MADE AWARE THAT PATIENT IS RESTLESS; TRYING TO GET OUT OF BED; NONPHARMACOLOGICAL INTERVENTIONS INEFFECTIVE. RECEIVED NEW ORDER FOR RESTORIL 15 MG PO X 1; NOTED AND CARRIED OUT. Addendum: 12/23/16 at 2201 by NETTE ZUNIGA RN WRONG PATIENT;
[2016-12-23] MEDS ORDERED: TEMAZEPAM 15 MG CAPSULE ONE (21:54)
[2016-12-23] MEDS ORDERED: TEMAZEPAM 15 MG CAPSULE PO ONE (22:00)
--- NOTE | 2016-12-24 06:07 | NUR ---
RN NOTES PATIENT ASLEEP, EASILY AROUSABLE. RESPIRATIONS EVEN. NO SIGNS OF PAIN NOTED. NO SUICIDE IDEATION NOTED. NEEDS ATTENDED. SAFETY PRECAUTIONS AND COMFORT MEASURES IN PLACE. SITTER AT BEDSIDE. WILL GIVE REPORT TO DAY SHIFT FOR CONTINUITY OF CARE.
[2016-12-24 06:29] LABS: BASOPHILS # (AUTO) 0.1 /CMM (0.0-0.2); BASOPHILS % (AUTO) 0.7 % (0.0-2.0); EOSINOPHILS # (AUTO) 0.5 /CMM (0.0-0.7); EOSINOPHILS % (AUTO) 6.2 % (0.0-6.0); HEMATOCRIT 46 % (39-51); HEMOGLOBIN 15.4 g/dL (13.5-17.5); LYMPHOCYTES # (AUTO) 1.8 /CMM (0.8-4.8); LYMPHOCYTES % (AUTO) 21.4 % (20.0-44.0); MEAN CORPUSCULAR HEMOGLOBIN 31 PG (26.0-33.0); MEAN CORPUSCULAR HGB CONC 34 g/dl (31.0-36.0); MEAN CORPUSCULAR VOLUME 94 fL (80-96); MONOCYTES # (AUTO) 0.7 /CMM (0.1-1.30); MONOCYTES % (AUTO) 8.4 % (2.0-12.0); NEUTROPHILS # (AUTO) 5.2 /CMM (1.8-8.9); NEUTROPHILS % (AUTO) 63.3 % (43.0-81.0); PLATELET COUNT (AUTO) 183 /CMM (150-450); RED BLOOD CELL COUNT(AUTO) 4.91 MIL/uL (4.5-6.0); WHITE BLOOD COUNT (AUTO) 8.3 K/uL (4.3-11.0)
[2016-12-24 06:43] LABS: CALCIUM, SERUM 8.5 mg/dL (8.5-10.1); CREATININE 2.2 mg/dL (0.6-1.3); PHOSPHORUS 4.2 mg/dL (2.5-4.9); POTASSIUM 5.1 mmol/L (3.5-5.1)
--- NOTE | 2016-12-24 07:35 | NUR ---
MS/RN OPENING NOTE PATIENT RECEIVED IN BED IN STABLE CONDITION. A/O X 3. NO SIGNS OF ACUTE DISTRESS. NO COMPLAIN OF PAIN OR DISCOMFORT. ALL NEEDS ATTENDED TO. CALL LIGHT WITHIN REACH. WILL CONTINUE TO MONITOR TO ENSURE SAFETY.
[2016-12-24 08:18] VITALS: BP 140/73
[2016-12-24] MEDS: ASPIRIN EC 81 MG TABLET.DR PO SCH (08:34)
[2016-12-24] MEDS: AMLODIPINE BESYLATE 10 MG TABLET PO SCH (08:34)
[2016-12-24] MEDS: CLONIDINE HCL 0.1 MG TABLET PO SCH ×2 (08:34→16:55)
[2016-12-24] MEDS: LamoTRIgine 100 MG TABLET PO SCH (08:34)
[2016-12-24] MEDS: GEMFIBROZIL 600 MG TABLET PO SCH ×2 (08:34→16:54)
[2016-12-24] MEDS: QUETIAPINE FUMARATE 100 MG TABLET PO SCH ×3 (08:34→16:54)
[2016-12-24] MEDS: METOPROLOL TARTRATE 25 MG TABLET PO SCH ×2 (08:35→16:54)
[2016-12-24] MEDS: IV 1/2NS 1000 ML 1,000 ML IV PRN ×2 (08:37→16:56)
[2016-12-24 12:32] VITALS: BP 140/73
[2016-12-24 16:45] VITALS: BP 120/75
[2016-12-24] MEDS: SIMVASTATIN 20 MG TABLET PO SCH (16:54)
--- NOTE | 2016-12-24 18:40 | NUR ---
MS/RN CLOSING NOTE PATIENT IN BED IN STABLE CONDITION. A/O X 2. NO SIGNS OF ACUTE DISTRESS. NO COMPLAIN OF PAIN OR DISCOMFORT. ALL NEEDS ATTENDED TO. CALL LIGHT WITHIN REACH. WILL ENDORSE TO NEXT SHIFT FOR CONTINUITY OF CARE. Addendum: 12/24/16 at 1842 by OFELIA TEJADA RN 1:1 SITTER AT BEDSIDE.
--- NOTE | 2016-12-24 19:47 | NUR ---
MS RN INITIAL NOTES PT IS IN BED SLEEPING, EASILY AROUSED. NO SIGNS OF SOB OR DISTRESS. BREATHING EVENLY AND UNLABORED ON ROOM AIR. IV ACCESS INTACT WITH 1/2 NS INFUSING AT 125 ML/HR. SITTER IS AT BEDSIDE. BED IS IN LOW AND LOCKED POSITION, CALL LIGHT WITHIN REACH. WILL CONTINUE TO MONITOR PT
[2016-12-24 20:00] VITALS: BP 109/70
[2016-12-25] MEDS: IV 1/2NS 1000 ML 1,000 ML IV PRN (01:02)
--- NOTE | 2016-12-25 06:29 | NUR ---
MS RN CLOSING NOTES PT IS IN BED SLEEPING. NO SIGNS OF SOB OR DISTRESS. IV ACCESS IS INTACT AND PATENT. SITTER AT BEDSIDE. BED IS IN LOW AND LOCKED POSITION. ALL NEEDS WERE ANTICIPATED AND MET. WILL ENDORSE TO DAY SHIFT
--- NOTE | 2016-12-25 07:38 | NUR ---
MS/RN OPENING NOTE PATIENT RECEIVED IN BED IN STABLE CONDITION. A/O 2-3. NO SIGNS OF ACUTE DISTRESS. NO COMPLAIN OF PAIN OR DISCOMFORT. ALL NEEDS ATTENDED TO. CALL LIGHT WITHIN REACH. 1:1 SITTER AT BEDSIDE WILL CONTINUE TO MONITOR TO ENSURE SAFETY.
[2016-12-25] MEDS: CLONIDINE HCL 0.1 MG TABLET PO SCH (08:17)
[2016-12-25] MEDS: QUETIAPINE FUMARATE 100 MG TABLET PO SCH ×2 (08:17→13:27)
[2016-12-25] MEDS: ASPIRIN EC 81 MG TABLET.DR PO SCH (08:17)
[2016-12-25] MEDS: GEMFIBROZIL 600 MG TABLET PO SCH (08:17)
[2016-12-25] MEDS: LamoTRIgine 100 MG TABLET PO SCH (08:17)
[2016-12-25] MEDS: AMLODIPINE BESYLATE 10 MG TABLET PO SCH (08:18)
[2016-12-25] MEDS: METOPROLOL TARTRATE 25 MG TABLET PO SCH (08:18)
[2016-12-25 08:44] LABS: CALCIUM, SERUM 8.4 mg/dL (8.5-10.1); CREATININE 2.5 mg/dL (0.6-1.3); POTASSIUM 5.5 mmol/L (3.5-5.1)
[2016-12-25 09:30] VITALS: BP 156/90
--- NOTE | 2016-12-25 10:41 | NUR ---
Social service consult requested by Dr. Parker for suicidal ideations with no plan. Pt. is a 51 year old male who was admitted to [facility] for lithium toxicity. SW met with pt. bedside. Pt. is alert and oriented x 3. Pt. is well-groomed and cooperative with SW during the assessment. Pt. resides at a sober living located at [address] [place] [address] . Pt. has been living at the sober home for the past year. Pt. receives approximately $889.00 in [employer]. Pt. is a methamphetamine abuser and has not used for the past four to five weeks. Pt. states he stopped drinking alcohol seven months ago. Pt. uses marijuana occasionally. Pt. is open to accepting referrals to drug and alcohol treatment programs and AA meetings. Pt. states he is feeling suicidal but has no plan. Pt. denies having visual and auditory hallucinations at this time. Pt. has a history of Bipolar disorder. Pt. is interested in going voluntary to a psychiatric hospital. SW to refer pt. to [facility] psychiatric hospital in [place].
[2016-12-25] MEDS ORDERED: SODIUM POLYSTYRENE SULFONATE 15 G/60 ML BOTTLE PO ONE (11:00)
--- NOTE | 2016-12-25 11:02 | NUR ---
GERARDO faxed clinicals to intake at [facility] .
--- NOTE | 2016-12-25 14:11 | NUR ---
GERARDO met with pt's brother Shaka Baig who was visiting pt. bedside. Pt's brother resides in [facility] and would like for pt. to reside closer to him. Pt. has section 8 housing and pt's brother wants pt. to live closer towards him. GERARDO informed pt. and his brother that the pt. would have to find housing independently by calling [employer] and requesting a list of openings. Pt. is willing to go to [facility] on a volunteer basis.
--- NOTE | 2016-12-25 14:24 | NUR ---
SW spoke to Arelis in intake at [facility] who informed SW that they will accept the pt. as soon as they receive discharge note that states "Pt. is medically cleared for discharge" . SW informed pillowcase maker Kim Brown and JULIA Salas regarding wording needed for discharge note. Accepting doctor at [facility] is Dr. Smith. RN to RN report needs to be called in at [phone]. GERARDO gave pillowcase maker Kim Brown the aforementioned contact information.
--- NOTE | 2016-12-25 14:28 | NUR ---
Pt's brother Shaka Baig's contact number is .
--- NOTE | 2016-12-25 15:10 | NUR ---
GERARDO faxed discharge summary to intake at [facility] and spoke to Arelis who confirmed receiving it and informed SW to have nurse to nurse report called in. GERARDO informed JULIA Salas and gave her the accepting Dr. Smith and nurse to nurse report contact information that needs to be called in by pt's RN. GERARDO met with pt. bedside and informed him that he got accepted at [facility] located at [address] [place] [address], in [facility] . GERARDO gave pt. a pair of shoes since he said he did not have any.
--- NOTE | 2016-12-25 17:47 | NUR ---
MS/SITE PROJECT MANAGER PATIENT DISCHARGE TO [facility], VASILE KIMBLE IN STABLE CONDITION. A/O X 3. NO SIGNS OF ACUTE DISTRESS. NO COMPLAIN OF PAIN OR DISCOMFORT. ALL NEEDS ATTENDED. LEFT VIA TAXI IN STABLE CONDITION. REPORT GIVEN TO YANIRA GALLEGO. DISCHARGE INSTRUCTIONS AND EDUCATION PROVIDED TO PATIENT, VERBALIZED UNDERSTANDING. NAME BAND AND IV LINE REMOVED.
== END 2016-12-25 17:00 | DRG 816 ==
LOC: ER 20:59 → MED 12-20 08:42
PROVIDERS: ADMIT Internal Medicine; ATTEND Internal Medicine
DX: T56.891A Toxic effect of other metals, accidental (unintentional), initial encounter (principal); N17.0 Acute kidney failure with tubular necrosis; G92 Toxic encephalopathy; R45.851 Suicidal ideations; E87.5 Hyperkalemia; N18.9 Chronic kidney disease, unspecified; G40.909 Epilepsy, unspecified, not intractable, without status epilepticus; F17.210 Nicotine dependence, cigarettes, uncomplicated; F10.10 Alcohol abuse, uncomplicated; F12.90 Cannabis use, unspecified, uncomplicated; F15.10 Other stimulant abuse, uncomplicated; Z79.899 Other long term (current) drug therapy; F31.30 Bipolar disorder, current episode depressed, mild or moderate severity, unspecified; Y92.009 Unspecified place in unspecified non-institutional (private) residence as the place of occurrence of the external cause; I12.9 Hypertensive chronic kidney disease with stage 1 through stage 4 chronic kidney disease, or unspecified chronic kidney disease; Y90.1 Blood alcohol level of 20-39 mg/100 ml
CPT/HCPCS: 36415; 70450-TC; 80048-TC; 80053-TC; 80061-TC; 80076-TC; 80305; 81000-TC; 82550-TC; 83735-TC; 84100-TC; 84484-TC; 85025-TC; 93307-TC; A4606; G0480; J3475; J3490; J7030; Z7610

== ENCOUNTER 2017-01-07 18:59 | Emergency (ER) | payer OTHER ==
[~2017-01-07] VITALS: Ht 175.3 cm; Wt 104.3 kg
[2017-01-07 19:23] VITALS: BP 142/80
--- NOTE | 2017-01-07 19:23 | NUR ---
PT BIB SELF AMBULATORY TO ER BED 7. PT PLACED IN GOWN AND VS/MYSQL DATABASE ADMINISTRATOR. PT C/O FEELING DIZZY AND CLAMMY SINCE MID AFTERNOON. VSS/RESP EVEN UNLABORED/NAD NOTED/AOX4/SKIN WARM AND DRY. AWAITING MD DOSUZA.
[2017-01-07] MEDS ORDERED: LORAZEPAM 1 MG TABLET ONE (19:28)
[2017-01-07] MEDS ORDERED: LORAZEPAM 1 MG TABLET PO ONE (19:30)
--- NOTE | 2017-01-07 19:31 | NUR ---
AT BEDSIDE SPEAKING WITH PT.
== END 2017-01-07 20:08 | disposition home or self-care (01) ==
LOC: ER 19:10
DX: F41.9 Anxiety disorder, unspecified (principal); I10 Essential (primary) hypertension; F10.10 Alcohol abuse, uncomplicated; F17.210 Nicotine dependence, cigarettes, uncomplicated; Z79.82 Long term (current) use of aspirin

== ENCOUNTER 2017-02-11 20:01 | Inpatient (IN) | payer OTHER ==
[~2017-02-11] VITALS: Ht 177.8 cm; Wt 103.4 kg
[2017-02-11 20:28] LABS: BASOPHILS # (AUTO) 0.1 /CMM (0.0-0.2); BASOPHILS % (AUTO) 0.5 % (0.0-2.0); EOSINOPHILS # (AUTO) 0.1 /CMM (0.0-0.7); EOSINOPHILS % (AUTO) 0.9 % (0.0-6.0); HEMATOCRIT 46 % (39-51); HEMOGLOBIN 15.4 g/dL (13.5-17.5); LYMPHOCYTES # (AUTO) 1.9 /CMM (0.8-4.8); MEAN CORPUSCULAR HEMOGLOBIN 31 PG (26.0-33.0); MEAN CORPUSCULAR HGB CONC 34 g/dl (31.0-36.0); MEAN CORPUSCULAR VOLUME 92 fL (80-96); MONOCYTES % (AUTO) 8.9 % (2.0-12.0); NEUTROPHILS # (AUTO) 8.6 /CMM (1.8-8.9); NEUTROPHILS % (AUTO) 73.7 % (43.0-81.0); PLATELET COUNT (AUTO) 230 /CMM (150-450); RDW COEFFICIENT OF VARIATION 13.1 (11.5-15.0); RED BLOOD CELL COUNT(AUTO) 4.95 MIL/uL (4.5-6.0); WHITE BLOOD COUNT (AUTO) 11.7 K/uL (4.3-11.0)
[2017-02-11 20:44] LABS: ALBUMIN 3.9 g/dL (3.4-5.0); BILIRUBIN,DIRECT 0.1 mg/dL (0.0-0.2); BILIRUBIN,TOTAL 0.3 mg/dL (0.2-1.0); CREATININE 2.6 mg/dL (0.6-1.3); TOTAL PROTEIN, SERUM 8.5 g/dL (6.4-8.2)
[2017-02-11 20:46] LABS: POTASSIUM 6.6 mmol/L (3.5-5.1)
--- NOTE | 2017-02-11 21:00 | NUR ---
PT BIB [facility] AND [facility]. PT IS IN [facility] AND [facility] IS RELEASING PT FROM [facility] DUE TO SI. PT STATED THAT HIS PLAN WAS TO HANG HIMSELF. PT IS AA&O X4. PT IS AMBULATORY WITH A STEADY GAIT.
[2017-02-11 21:20] LABS: APPEARANCE,URINE Slightly Cloudy (CLEAR); BILIRUBIN,URINE Negative (NEGATIVE); BLOOD, URINE Small Ery/uL (NEGATIVE); COLOR,URINE Yellow (YELLOW); KETONES,URINE Negative (NEGATIVE); LEUKOCYTE ESTERASE ,URINE Negative (NEGATIVE); NITRITE, URINE Negative (NEGATIVE); PH,URINE 5.5 (5.0-8.0); PROTEIN,URINE >=300 mg/dl (NEGATIVE); UGLUCOSE Negative (NEGATIVE); UROBILINOGEN,URINE 0.2 EU/dL (0.2)
[2017-02-11 21:23] LABS: CALCIUM, SERUM 8.7 mg/dL (8.5-10.1); CREATININE 2.6 mg/dL (0.6-1.3)
[2017-02-11 21:25] LABS: POTASSIUM 6.3 mmol/L (3.5-5.1)
[2017-02-11] MEDS ORDERED: Calcium Gluconate 1GM/10ML 4.65 MEQ in IV D5W 50 ML IV ONE (21:30)
[2017-02-11] MEDS ORDERED: SODIUM POLYSTYRENE SULFONATE 15 G/60 ML BOTTLE PO ONE (21:30)
[2017-02-11] MEDS ORDERED: INSULIN REGULAR, HUMAN 100 UNIT/ML 10 ML VIAL IV ONE (21:30)
[2017-02-11] MEDS ORDERED: SODIUM BICARBONATE SYR 50 MEQ/50 ML DISP.SYRIN IV ONE (21:30)
[2017-02-11] MEDS ORDERED: DEXTROSE 50%-WATER 50 ML DISP.SYRIN IV ONE (21:30)
[2017-02-11 21:33] LABS: WBC,URINE 0-2 /HPF (0-3)
[2017-02-11 21:34] LABS: BACTERIA,URINE Few /HPF (None Seen); FINE GRANULAR CASTS,URINE Rare /LPF (None Seen); HYALINE CASTS, URINE Few /LPF (None Seen); MUCUS,URINE Few /LPF (None Seen); SQUAMOUS EPITHELIAL CELL,UR Few /HPF (None Seen)
[2017-02-11] MEDS ORDERED: SODIUM BICARBONATE SYR 50 MEQ/50 ML DISP.SYRIN ONE (21:38)
[2017-02-11] MEDS ORDERED: SODIUM POLYSTYRENE SULFONATE 15 G/60 ML BOTTLE ONE (21:38)
[2017-02-11] MEDS ORDERED: Calcium Gluconate 0.465 MEQ/ML VIAL IV ONE (21:38)
[2017-02-11] MEDS ORDERED: INSULIN REGULAR, HUMAN 100 UNIT/ML 10 ML VIAL ONE (21:39)
[2017-02-11] MEDS ORDERED: DEXTROSE 50%-WATER 50 ML DISP.SYRIN ONE (21:39)
--- NOTE | 2017-02-11 21:40 | NUR ---
20G IV STARTED IN LT WRIST.
--- NOTE | 2017-02-11 21:43 | NUR ---
PT REC'D ELSA DIAS.
--- NOTE | 2017-02-11 22:22 | NUR ---
CALLING REPORT TO TELE NURSE.
[2017-02-11] MEDS ORDERED: ALBUTEROL FS 2.5 MG/0.5 ML VIAL.NEB NEB PRN (22:30)
[2017-02-11] MEDS ORDERED: ONDANSETRON HCL/PF 4 MG/2 ML VIAL IVP PRN (22:30)
[2017-02-11] MEDS ORDERED: hydrALAZINE HCL 25 MG TABLET PO PRN (22:30)
[2017-02-11] MEDS ORDERED: ACETAMINOPHEN 325 MG TABLET PO PRN (22:30)
[2017-02-11] MEDS ORDERED: IPRATROPIUM NEB FS 0.5 MG/2.5 ML AMPUL.NEB NEB PRN (22:30)
[2017-02-11] MEDS ORDERED: ZOLPIDEM TARTRATE 5 MG TABLET PO PRN (22:30)
--- NOTE | 2017-02-11 22:43 | NUR ---
TELE 326-2
--- NOTE | 2017-02-11 22:47 | NUR ---
CALLING REPORT TO JULIÁN MOLINA
--- NOTE | 2017-02-11 22:49 | NUR ---
PT AMBULATED TO THE BATHROOM WITH A STEADY GAIT.
[2017-02-11 23:30] VITALS: BP 169/107
[2017-02-11] MEDS ORDERED: hydrALAZINE HCL 25 MG TABLET ONE (23:45)
[2017-02-12] VITALS: BP 161/100
[2017-02-12] MEDS ORDERED: ZOLPIDEM TARTRATE 5 MG TABLET ONE (00:11)
[2017-02-12] MEDS: IV 1/2NS 1000 ML 1,000 ML IV PRN ×2 (00:58→17:23)
--- NOTE | 2017-02-12 05:39 | NUR ---
RN NOTES 23:30 Patient arrived in unit in no apparent distress. Spoke to patient in a calm and friendly manner and explained to him the POC for the shift. Patient is alert and oriented x4, verbally responsive and able to make needs known. Provided with a sitter. Breathing is regular and non-labored, skin is warm and dry to touch, no c/o pain or discomfort as of this time. Admission assessment done, as per patient he doesn't have suicidal ideation as of the moment. "That was earlier before I got admitted here." But patient admitted that he has suicidal ideations in the past. patient is cooperative, no observation of unusual behavior noted. 00:30 Routine admission done. All needs attended. Will continue to monitor. Ambien given as per patient request.
[2017-02-12 07:04] LABS: BASOPHILS % (AUTO) 0.4 % (0.0-2.0); EOSINOPHILS # (AUTO) 0.2 /CMM (0.0-0.7); EOSINOPHILS % (AUTO) 2.6 % (0.0-6.0); HEMATOCRIT 41 % (39-51); LYMPHOCYTES # (AUTO) 1.9 /CMM (0.8-4.8); LYMPHOCYTES % (AUTO) 22.8 % (20.0-44.0); MEAN CORPUSCULAR HEMOGLOBIN 31 PG (26.0-33.0); MEAN CORPUSCULAR HGB CONC 34 g/dl (31.0-36.0); MEAN CORPUSCULAR VOLUME 92 fL (80-96); MONOCYTES % (AUTO) 12.1 % (2.0-12.0); NEUTROPHILS # (AUTO) 5.2 /CMM (1.8-8.9); NEUTROPHILS % (AUTO) 62.1 % (43.0-81.0); PLATELET COUNT (AUTO) 185 /CMM (150-450); RDW COEFFICIENT OF VARIATION 14.1 (11.5-15.0); RED BLOOD CELL COUNT(AUTO) 4.46 MIL/uL (4.5-6.0); WHITE BLOOD COUNT (AUTO) 8.4 K/uL (4.3-11.0)
[2017-02-12 07:27] VITALS: BP 147/107
[2017-02-12 07:27] LABS: ALBUMIN 3.3 g/dL (3.4-5.0); BILIRUBIN,TOTAL 0.6 mg/dL (0.2-1.0); CALCIUM, SERUM 8.6 mg/dL (8.5-10.1); CREATININE 2.2 mg/dL (0.6-1.3); MAGNESIUM 1.9 mg/dL (1.8-2.4); PHOSPHORUS 3.5 mg/dL (2.5-4.9); TOTAL PROTEIN, SERUM 7.1 g/dL (6.4-8.2)
[2017-02-12 07:37] LABS: THYROID STIMULATING HORMONE 1.317 uIU/mL (0.358-3.74)
[2017-02-12 08:00] VITALS: BP 160/99
--- NOTE | 2017-02-12 08:00 | NUR ---
RN NOTES RECEIVED PATIENT IN THE ROOM, TELE SR- 81, A/O X3, NO RESPIRATORY DISTRESS, NO ACUTE DISTRESS AT THIS TIME, PATIENT DENIED SUICIDAL IDEATION. PATIENT HAS A DRY COUGH, IV LINE ON LEFT WRIST NS AT 70 ML/HR INTACT. V/S TAKE. ENCOURAGED TO EXPRESS FEELINGS AND CONCERNS. 1;1 SITTER NEXT TO THE BED FOR SAFETY, CALL LIGHT WITHIN TO REACH. CONTINUED MONITORING.
[2017-02-12] MEDS: METOPROLOL TARTRATE 25 MG TABLET PO SCH ×2 (09:53→17:40)
[2017-02-12] MEDS: NICOTINE PATCH (21MG) 21 MG PATCH.TD24 TD SCH ×2 (09:53)
[2017-02-12] MEDS: THIAMINE HCL 100 MG TABLET PO SCH ×2 (09:53)
[2017-02-12] MEDS: CLONIDINE HCL 0.1 MG TABLET PO SCH ×2 (09:54→17:40)
[2017-02-12] MEDS: LamoTRIgine 100 MG TABLET PO SCH (09:54)
[2017-02-12] MEDS: FOLIC ACID 1 MG TABLET PO SCH ×2 (09:54)
[2017-02-12] MEDS: AMLODIPINE BESYLATE 10 MG TABLET PO SCH (09:54)
[2017-02-12] MEDS: QUETIAPINE FUMARATE 100 MG TABLET PO SCH ×3 (09:54→17:40)
[2017-02-12] MEDS: ASPIRIN EC 81 MG TABLET.DR PO SCH (09:54)
[2017-02-12] MEDS: MULTIVITAMINS,THERAGRAN 1 UDTAB TABLET PO SCH ×2 (10:00)
[2017-02-12] MEDS: PANTOPRAZOLE 40 MG TABLET.DR PO SCH (10:00)
--- NOTE | 2017-02-12 12:00 | NUR ---
RN NOTES PATIENT IN THE BED NO ACUTE DISTRESS, PATIENT ON MED SURGE AT THIS TIME, SCHEDULED MEDICATION ADMINISTERED, V/S STABLE, PUT PSYCH CONSULTATION PER MD ORDER, IV LINE LEFT WRIST INFUSING INTACT, 1:1 SITTER NEXT TO THE BED FOR SAFETY, CALL LIGHT WITHIN TO REACH, SAFETY PRECAUTION MAINTAINED ALL THE TIME.
--- NOTE | 2017-02-12 12:36 | NUR ---
Hydrodynamicist to see the patient before discharge. air brake worker spoke to the patient's nurse Kimberly for psych consult due to patient verbalizing plan to commit suicide upon admission. Kimberly stated that the order has been entered and Dr. Rodriguez will see the patient today. SW to follow up.
--- NOTE | 2017-02-12 17:00 | NUR ---
RN NOTES CALLED PSYCH UNIT, FAXED FACE SHEETS , FOR PSYCH CONSULTATION, STILL WAITING PSYCHIATRIST FOR EVALUATION, CONTINUED MONITORING.
--- NOTE | 2017-02-12 17:00 | NUR ---
RN NOTES PATIENT WAS C/O SOB CALLED RT FOR BREATHING TREATMENT, V/S TAKEN STABLE, NO ACUTE DISTRESS, 1:1 SITTER NEXT TO THE BED FOR SAFETY, CALL LIGHT WITHIN TO REACH, CONTINUED MONITORING.
--- NOTE | 2017-02-12 17:10 | NUR ---
RT RECD A CALL FR RN. PT HAVING SHORTNESS OF BREATH. EVALUATED PT SP02 97% HR70 RR18 NO RESP DISTRESS. PT COUGHING CLEAR-COURSE BREATH SOUNDS NO WHEEZING. NO TX GIVEN YOLIE CONTINUE TO MONITOR Addendum: 02/12/17 at 1712 by ARJUN JIMENEZ RT Amended: Links added.
[2017-02-12] MEDS: SIMVASTATIN 20 MG TABLET PO SCH (17:40)
--- NOTE | 2017-02-12 19:00 | NUR ---
RN NOTES PATIENT IN THE HALLWAY WALKING AROUND, HAS NO C/O SOB, NO C/O PAIN, MED COMPLIANT, V/S STABLE. 1:1 SITTER NEXT TO THE BED FOR SAFETY. ENDORSED ONCOMING NURSE FOR CONTINUATION OF CARE.
[2017-02-13] MEDS: PANTOPRAZOLE 40 MG TABLET.DR PO SCH (06:47)
--- NOTE | 2017-02-13 07:30 | NUR ---
PT RECEIVED RESTING COMFORTABLY IN BED. NO S/S OR C/O PAIN OR DISTRESS NOTED. SIDE RAILS UP X2, CALL LIGHT LEFT WITHIN REACH. SITTER AT BEDSIDE. WILL CONTINUE PLAN OF CARE.
[2017-02-13 07:53] LABS: BASOPHILS % (AUTO) 0.6 % (0.0-2.0); EOSINOPHILS # (AUTO) 0.3 /CMM (0.0-0.7); EOSINOPHILS % (AUTO) 4.5 % (0.0-6.0); HEMATOCRIT 40 % (39-51); HEMOGLOBIN 13.6 g/dL (13.5-17.5); LYMPHOCYTES # (AUTO) 1.6 /CMM (0.8-4.8); MEAN CORPUSCULAR HEMOGLOBIN 31 PG (26.0-33.0); MEAN CORPUSCULAR HGB CONC 34 g/dl (31.0-36.0); MEAN CORPUSCULAR VOLUME 92 fL (80-96); MONOCYTES % (AUTO) 14.4 % (2.0-12.0); NEUTROPHILS # (AUTO) 3.9 /CMM (1.8-8.9); NEUTROPHILS % (AUTO) 56.5 % (43.0-81.0); PLATELET COUNT (AUTO) 172 /CMM (150-450); RED BLOOD CELL COUNT(AUTO) 4.34 MIL/uL (4.5-6.0); WHITE BLOOD COUNT (AUTO) 6.8 K/uL (4.3-11.0)
[2017-02-13 08:00] VITALS: BP 126/84
[2017-02-13 08:18] LABS: CALCIUM, SERUM 8.5 mg/dL (8.5-10.1); CREATININE 2.2 mg/dL (0.6-1.3); MAGNESIUM 2.1 mg/dL (1.8-2.4)
[2017-02-13] MEDS: MULTIVITAMINS,THERAGRAN 1 UDTAB TABLET PO SCH (09:45)
[2017-02-13] MEDS: FOLIC ACID 1 MG TABLET PO SCH (09:46)
[2017-02-13] MEDS: METOPROLOL TARTRATE 25 MG TABLET PO SCH ×2 (09:46→17:00)
[2017-02-13] MEDS: ASPIRIN EC 81 MG TABLET.DR PO SCH (09:46)
[2017-02-13] MEDS: QUETIAPINE FUMARATE 100 MG TABLET PO SCH ×3 (09:46→17:26)
[2017-02-13] MEDS: LamoTRIgine 100 MG TABLET PO SCH (09:47)
[2017-02-13] MEDS: CLONIDINE HCL 0.1 MG TABLET PO SCH ×2 (09:47→17:26)
[2017-02-13] MEDS: THIAMINE HCL 100 MG TABLET PO SCH (09:47)
[2017-02-13] MEDS: AMLODIPINE BESYLATE 10 MG TABLET PO SCH (09:47)
[2017-02-13] MEDS: NICOTINE PATCH (21MG) 21 MG PATCH.TD24 TD SCH (10:03)
--- NOTE | 2017-02-13 12:46 | NUR ---
Social service consult requested by [facility] JULIA Sherman for suicidal ideations. Pt. is a 52 year old male who was admitted to [facility] for suicidal ideations and Hyperkalemia. GERARDO met with pt. bedside. Pt. is alert and oriented x 3. SW is familiar with pt. from a previous admission in December 2016. Pt. appears to have a flat affect and is not very forthcoming as to why he is feeling suicidal. When GERARDO inquired with pt. as to what is troubling him, pt. stated, " I do not want to talk about it", "Nothing is going to be the same anymore". " my life is ruined". SW tried to get pt. to talk about what's troubling him and provided emotional support, however pt. refused to talk about it. Pt. states, " I am afraid to go anywhere, I am losing my mind". Pt. continues to reside at a sober living in [place]. GERARDO inquired with pt. if his brother Shaka is aware of his hospitalization. Pt. stated his brother does not know and would like for SW to contact him. GERARDO contacted pt's brother Shaka and informed him of his brother's hospitalization and transferred call to [facility] so that he could speak to the pt. SW to follow up again with pt regarding discharge plan once pt. has been seen and cleared by psychiatrist.
[2017-02-13] MEDS: SIMVASTATIN 20 MG TABLET PO SCH (17:26)
--- NOTE | 2017-02-13 18:38 | NUR ---
CHANGE OF SHIFT REPORT PT RESTING COMFORTABLY IN BED WITH EYES CLOSED. NO S/S OR C/O PAIN OR DISTRESS NOTED. SIDE RAILS UP X2, CALL LIGHT LEFT WITHIN REACH. PT KEPT CLEAN, DRY, AND COMFORTABLE. NO SIGNIFICANT CHANGES FROM PREVIOUS SHIFT. WILL GIVE REPORT TO ELBERT GALLGEO.
--- NOTE | 2017-02-13 19:15 | NUR ---
RN OPENING NOTES PT AWAKE AND ALERT, RESTING IN BED. 1:1 SITTER AT BEDSIDE. PT HAS A L WRIST IV #20 RUNNING 1/2 NS @70 ML/HR. TOLERATING FLUID WELL. SAFETY PRECAUTIONS IN PLACE. BED IN LOW, LOCKED POSITION, CALL LIGHT WITHIN REACH. WILL CONTINUE TO MONITOR.
[2017-02-13 20:00] VITALS: BP 104/45
[2017-02-14] MEDS: IV 1/2NS 1000 ML 1,000 ML IV PRN (05:18)
--- NOTE | 2017-02-14 06:48 | NUR ---
RN CLOSING NOTES PT SLEEPING IN BED. PT SLEPT WELL OVERNIGHT. 1:1 SITTER AT BEDSIDE. PT HAS A L WRIST IV #20 RUNNING 1/2 NS @70 ML/HR. TOLERATING FLUID WELL. SAFETY PRECAUTIONS IN PLACE. BED IN LOW, LOCKED POSITION, CALL LIGHT WITHIN REACH. WILL ENDORSE TO DAY SHIFT NURSE FOR CONTINUITY OF CARE.
[2017-02-14 08:00] VITALS: BP 134/85
--- NOTE | 2017-02-14 08:00 | NUR ---
RN NOTES TRECEIVED PATIENT IN THE ROOM, A/O X3/4, NO RESPIRATORY DISTRESS, V/S STABLE, ENCOURAGED TO EXPRESS FEELINGS AND CONCERNS TO NSG, PATIENT DENIED PAIN AT THIS TIME, AMBULATORY, IV LINE LEFT WRIST NS AT 70ML/HR, 1;1 SITTER NEXT TO THE BED, CALL LIGHT WITHIN TO REACH, SAFETY PRECAUTION MAINTAINED ALL THE TIME.
[2017-02-14 08:32] LABS: BASOPHILS % (AUTO) 0.6 % (0.0-2.0); EOSINOPHILS # (AUTO) 0.3 /CMM (0.0-0.7); EOSINOPHILS % (AUTO) 5.2 % (0.0-6.0); HEMATOCRIT 41 % (39-51); HEMOGLOBIN 13.7 g/dL (13.5-17.5); LYMPHOCYTES # (AUTO) 1.7 /CMM (0.8-4.8); LYMPHOCYTES % (AUTO) 31.3 % (20.0-44.0); MEAN CORPUSCULAR HEMOGLOBIN 31 PG (26.0-33.0); MEAN CORPUSCULAR HGB CONC 33 g/dl (31.0-36.0); MEAN CORPUSCULAR VOLUME 95 fL (80-96); MONOCYTES # (AUTO) 0.7 /CMM (0.1-1.30); MONOCYTES % (AUTO) 12.9 % (2.0-12.0); NEUTROPHILS # (AUTO) 2.8 /CMM (1.8-8.9); PLATELET COUNT (AUTO) 166 /CMM (150-450); RDW COEFFICIENT OF VARIATION 13.7 (11.5-15.0); RED BLOOD CELL COUNT(AUTO) 4.36 MIL/uL (4.5-6.0); WHITE BLOOD COUNT (AUTO) 5.6 K/uL (4.3-11.0)
[2017-02-14 09:08] LABS: CALCIUM, SERUM 8.7 mg/dL (8.5-10.1); CREATININE 2.1 mg/dL (0.6-1.3); POTASSIUM 5.2 mmol/L (3.5-5.1)
[2017-02-14] MEDS: ASPIRIN EC 81 MG TABLET.DR PO SCH (09:12)
[2017-02-14] MEDS: MULTIVITAMINS,THERAGRAN 1 UDTAB TABLET PO SCH (09:12)
[2017-02-14] MEDS: FOLIC ACID 1 MG TABLET PO SCH (09:12)
[2017-02-14] MEDS: NICOTINE PATCH (21MG) 21 MG PATCH.TD24 TD SCH (09:12)
[2017-02-14] MEDS: CLONIDINE HCL 0.1 MG TABLET PO SCH ×2 (09:12→17:37)
[2017-02-14] MEDS: LamoTRIgine 100 MG TABLET PO SCH (09:12)
[2017-02-14] MEDS: THIAMINE HCL 100 MG TABLET PO SCH (09:14)
[2017-02-14] MEDS: METOPROLOL TARTRATE 25 MG TABLET PO SCH ×2 (09:14→17:08)
[2017-02-14] MEDS: QUETIAPINE FUMARATE 100 MG TABLET PO SCH ×3 (09:15→17:08)
[2017-02-14] MEDS: PANTOPRAZOLE 40 MG TABLET.DR PO SCH (09:15)
[2017-02-14] MEDS: AMLODIPINE BESYLATE 10 MG TABLET PO SCH (09:15)
--- NOTE | 2017-02-14 11:51 | NUR ---
RN NOTES PATIENT IN THE BED , AFTER TAKING SHOWER, PATIENT DENIED SUICIDAL IDEATION AT THIS TIME, SCHEDULED MEDICATION ADMINISTERED, NO ACUTE DISTRESS, 1:1 SITTER NEXT TO THE BED FOR SAFETY, CALL LIGHT WITHIN TO REACH, CONTINUED MONITORING.
--- NOTE | 2017-02-14 13:39 | NUR ---
RN NOTES PATIENT IN THE BED, NO ACUTE DISTRESS, COOPERATIVE, REDIRECTABLE, 1:1 SITTER NEXT TO THE BED FOR SAFETY, STILL WAITING FOR PSYCH CONSULTATION, CALL LIGHT WITHIN TO REACH, CONTINUED MONITORING.
[2017-02-14 16:00] VITALS: BP 123/83
[2017-02-14] MEDS: SIMVASTATIN 20 MG TABLET PO SCH (17:08)
--- NOTE | 2017-02-14 17:54 | NUR ---
RN NOTES PATIENT IN THE BED, NO ACUTE DISTRESS AT THIS TIME. SEE BY Dr NUGENT PSYCHIATRIST, ORDERS TAKEN AND CARRIED OUT, SCHEDULED MEDICATION ADMINISTERED, V/S STABLE, PATIENT USING URINAL, AND BRP, PATIENT REFUSED SUICIDAL IDEATION AT THIS TIME, PRIVATE HOUSING COMMERCIAL ESTIMATOR NEXT TO THE BED NAME NICOLE. SHE WANTED TALK TO THE SW FOR DISCHARGE PLANING, CALLED AND LEFT MASSAGE SW FOR FOLLOW UP. BUSINESS CARD IN THE CHART. CALL LIGHT WITHIN TO REACH, SAFETY PRECAUTION MAINTAINED ALL THE TIME. ENDORSED ONCOMING NURSE FOR CONTINUATION OF CARE.
--- NOTE | 2017-02-14 19:18 | NUR ---
MS/RN NOTES RECEIVED PT. LYING IN BED. PT. IS AWAKE, ALERT AND ORIENTED X3. BREATHING EVEN AND UNLABORED ON ROOM AIR. NO SOB, RESPIRATORY DISTRESS OR COMPLAINTS OF PAIN NOTED AT THIS TIME. PT. DENIES HAVING ANY SUICIDAL OR HOMICIDAL IDEATIONS AT THIS TIME. PT. WITH RIGHT WRIST PERIPHERAL IV PRESENT, PATENT AND INTACT ADMINISTERING TO PT. NS @ 70 ML/HR. PT. WITH 1:1 SITTER PRESENT AT BEDSIDE. BED LOCKED AND IN LOWEST POSITION, SIDE RAILS UP X2, CALL LIGHT WITHIN REACH, WILL CONTINUE TO MONITOR.
[2017-02-14 20:00] VITALS: BP 116/75
[2017-02-15] MEDS: IV 1/2NS 1000 ML 1,000 ML IV PRN (02:15)
[2017-02-15 05:58] LABS: BASOPHILS % (AUTO) 0.7 % (0.0-2.0); EOSINOPHILS # (AUTO) 0.3 /CMM (0.0-0.7); EOSINOPHILS % (AUTO) 5.1 % (0.0-6.0); HEMATOCRIT 42 % (39-51); HEMOGLOBIN 14.1 g/dL (13.5-17.5); LYMPHOCYTES # (AUTO) 1.9 /CMM (0.8-4.8); LYMPHOCYTES % (AUTO) 28.3 % (20.0-44.0); MEAN CORPUSCULAR HEMOGLOBIN 31 PG (26.0-33.0); MEAN CORPUSCULAR HGB CONC 34 g/dl (31.0-36.0); MEAN CORPUSCULAR VOLUME 93 fL (80-96); MONOCYTES # (AUTO) 0.6 /CMM (0.1-1.30); MONOCYTES % (AUTO) 8.4 % (2.0-12.0); NEUTROPHILS # (AUTO) 3.8 /CMM (1.8-8.9); NEUTROPHILS % (AUTO) 57.5 % (43.0-81.0); PLATELET COUNT (AUTO) 178 /CMM (150-450); RDW COEFFICIENT OF VARIATION 13.4 (11.5-15.0); RED BLOOD CELL COUNT(AUTO) 4.48 MIL/uL (4.5-6.0); WHITE BLOOD COUNT (AUTO) 6.6 K/uL (4.3-11.0)
--- NOTE | 2017-02-15 05:59 | NUR ---
MS/RN NOTES PT. IS LYING IN BED RESTING. BREATHING EVEN AND UNLABORED ON ROOM AIR. NO SOB, RESPIRATORY DISTRESS OR COMPLAINTS OF PAIN NOTED AT THIS TIME AND THROUGHOUT SHIFT. PT. DENIES HAVING ANY SUICIDAL OR HOMICIDAL IDEATIONS AT THIS TIME AND THROUGHOUT SHIFT. PT. WITH RIGHT WRIST PERIPHERAL IV PRESENT, PATENT AND INTACT ADMINISTERING TO PT. NS @ 70 ML/HR. PT. REMAINS WITH 1:1 SITTER PRESENT AT BEDSIDE. ALL PT. NEEDS MET. BED LOCKED AND IN LOWEST POSITION, SIDE RAILS UP X2, CALL LIGHT WITHIN REACH, WILL ENDORSE TO DAYSHIFT NURSE FOR CONTINUITY OF CARE.
[2017-02-15 06:44] LABS: ALBUMIN 2.9 g/dL (3.4-5.0); BILIRUBIN,TOTAL 0.4 mg/dL (0.2-1.0); CALCIUM, SERUM 8.9 mg/dL (8.5-10.1); CREATININE 2.2 mg/dL (0.6-1.3); MAGNESIUM 1.9 mg/dL (1.8-2.4); PHOSPHORUS 3.3 mg/dL (2.5-4.9); POTASSIUM 5.2 mmol/L (3.5-5.1); TOTAL PROTEIN, SERUM 6.9 g/dL (6.4-8.2)
--- NOTE | 2017-02-15 07:27 | NUR ---
MS/RN OPENING NOTES PT RECEIVED AWAKE IN BED IN NO ACUTE SIGNS OF DISTRESS. 1:1 SITTER PRESENT AT BEDSIDE. A/0 X 3. VERBALLY RESPONSIVE, NO C/O PAIN VOICED, DENIES HAVING ANY SUICIDAL OR HOMICIDAL IDEATIONS AT THIS TIME. IV ACCESS ON RIGHT WRIST PATENT AND INTACT WITH IVF OF NS @ 70 ML/HR INFUSING, NO SIGNS OF INFILTRATION NOTED. ON ROOM AIR, BREATHING EVEN AND UNLABORED. BED LOCKED AND IN LOWEST POSITION WITH SIDE RAILS UP X2. CALL LIGHT WITHIN REACH. WILL CONTINUE TO MONITOR PT ACCORDINGLY.
[2017-02-15 08:00] VITALS: BP 141/95
[2017-02-15] MEDS: PANTOPRAZOLE 40 MG TABLET.DR PO SCH (08:11)
[2017-02-15] MEDS: MULTIVITAMINS,THERAGRAN 1 UDTAB TABLET PO SCH (08:25)
[2017-02-15] MEDS: NICOTINE PATCH (21MG) 21 MG PATCH.TD24 TD SCH (08:25)
[2017-02-15] MEDS: FOLIC ACID 1 MG TABLET PO SCH (08:25)
[2017-02-15] MEDS: LamoTRIgine 100 MG TABLET PO SCH (08:25)
[2017-02-15] MEDS: ASPIRIN EC 81 MG TABLET.DR PO SCH (08:25)
[2017-02-15] MEDS: THIAMINE HCL 100 MG TABLET PO SCH (08:25)
[2017-02-15] MEDS: QUETIAPINE FUMARATE 100 MG TABLET PO SCH ×3 (08:26→17:01)
[2017-02-15] MEDS: METOPROLOL TARTRATE 25 MG TABLET PO SCH ×2 (08:27→17:02)
[2017-02-15] MEDS: CLONIDINE HCL 0.1 MG TABLET PO SCH ×2 (08:28→17:03)
[2017-02-15] MEDS: AMLODIPINE BESYLATE 10 MG TABLET PO SCH (08:28)
[2017-02-15] MEDS ORDERED: ESCITALOPRAM OXALATE (10 MG) 10 MG TABLET PO SCH (09:00)
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
[2017-02-15] MEDS ORDERED: LAMO100T2 PO (14:49)
[2017-02-15] MEDS ORDERED: ESCI10TA PO (14:49)
--- NOTE | 2017-02-15 15:46 | NUR ---
GERARDO met with pt's family independence case manager Erin and pt. bedside. Erin informed SW and pt. that they will not be able to find him placement until tomorrow once they have a meeting. Pt. informed SW and Erin that he will try to contact his brother and stay with him. However, if pt. is unable to go with his brother, SW offered pt. the [facility] list and pt. is willing to go to the intermediate if staying with his brother is not an option. GERARDO gave pt. the [facility] list and informed him the nearest shuttle grain picker for the intermediate is Bus stop located at [address] [place] [address], and grain picker times are 5:30PM, 6:30PM, 7:30PM and 8:30PM. Pt. informed SW he will leave around 7PM. JULIÁN Nathan was informed of discharge plan and bus token was give to JULIÁN Nathan to give to pt. upon discharge. No other social service needs are required at this time. SW is available if needed. Homeless Patient Waiver form was signed by pt. and placed in pt's chart.
[2017-02-15 16:00] VITALS: BP 124/81
[2017-02-15] MEDS: SIMVASTATIN 20 MG TABLET PO SCH (17:01)
[2017-02-15 17:03] VITALS: BP 124/81
--- NOTE | 2017-02-15 18:43 | NUR ---
RN DISCHARGED NOTES PT DISCHARGED HOME IN STABLE CONDITION. PT IS A/O X 4. VERBALLY RESPONSIVE, DENIES HAVING ANY SUICIDAL OR HOMICIDAL IDEATIONS DURING DISCHARGE. ON ROOM AIR, BREATHING EVEN WITH NO SOB NOTED. ALL NEEDS AND CARE PROVIDED WELL. V/S TAKEN AND RECORDED. SKIN IS INTACT. PT VERBALIZED THAT HE RECEIVED THE FLU VACCINE ALREADY AND REFUSED THE PNA VACCINE. BELONGINGS CHECKED, COUNTED AND SIGNED FORM. HEALTH TEACHINGS GIVEN AND VERBALIZED UNDERSTANDING. BUS TOKEN GIVEN TO PT AND LEFT UNIT @ 1830H AMBULATORY ACCOMPANIED TO THE LOBBY BY THIS PARTNER. MD AND CHARGE NURSE AWARE OF DISCHARGE.
[2017-02-16 11:12] LABS: PTH, INTACT 40 pg/mL (15-65)
[2017-02-19 08:14] LABS: *SPE A/G RATIO 0.9 (0.7-1.7); *SPE ALBUMIN 2.9 g/dL (2.9-4.4); *SPE ALPHA-1-GLOBULIN 0.2 g/dL (0.0-0.4); *SPE ALPHA-2-GLOBULIN 0.9 g/dL (0.4-1.0); *SPE BETA GLOBULIN 0.9 g/dL (0.7-1.3); *SPE GLOBULIN, TOTAL 3.3 g/dL (2.2-3.9); *SPE M-SPIKE Not Observed g/dL (Not Observed); *SPEGAMMA GLOBULIN 1.4 g/dL (0.4-1.8)
== END 2017-02-15 18:37 | disposition home or self-care (01) | DRG 470 ==
LOC: ER 20:02 → TELE 22:01 → MED 02-12 08:43
PROVIDERS: ADMIT Nurse Practitioner Acute Care; ATTEND Nurse Practitioner Acute Care
DX: I12.9 Hypertensive chronic kidney disease with stage 1 through stage 4 chronic kidney disease, or unspecified chronic kidney disease (principal); N17.0 Acute kidney failure with tubular necrosis; R45.851 Suicidal ideations; E87.5 Hyperkalemia; E78.5 Hyperlipidemia, unspecified; D72.829 Elevated white blood cell count, unspecified; G40.909 Epilepsy, unspecified, not intractable, without status epilepticus; R73.03 Prediabetes; F41.9 Anxiety disorder, unspecified; F17.210 Nicotine dependence, cigarettes, uncomplicated; R55 Syncope and collapse; R74.0 Nonspecific elevation of levels of transaminase and lactic acid dehydrogenase [LDH]; V89.2XXS Person injured in unspecified motor-vehicle accident, traffic, sequela; Z72.89 Other problems related to lifestyle; F19.11 Other psychoactive substance abuse, in remission; F31.5 Bipolar disorder, current episode depressed, severe, with psychotic features; F10.10 Alcohol abuse, uncomplicated; Y90.3 Blood alcohol level of 60-79 mg/100 ml; N18.9 Chronic kidney disease, unspecified
CPT/HCPCS: 36415; 70450-TC; 71010-TC; 80048-TC; 80053-TC; 80061-TC; 80076-TC; 80305; 81000-TC; 82306; 82550-TC; 82652; 83735-TC; 83970; 84100-TC; 84155; 84165; 84443-TC; 84484-TC; 85025-TC; 87081-TC; 95819-TC; A4606; G0480; J0610; J1815; J3490; J7060; Z7610

== ENCOUNTER 2017-04-08 21:06 | Inpatient (IN) | payer OTHER ==
[~2017-04-08] VITALS: Ht 167.6 cm; Wt 103.4 kg
[~2017-04-08 21:06] MED LIST changes: +ESCI10TA PO; +LAMO100T2 PO; -LITH300T PO
[2017-04-08] MEDS ORDERED: NALOXONE PREFILLED SYRINGE 2 MG/2 ML SYRINGE ONE (21:40)
[2017-04-08 21:55] LABS: BASOPHILS % (AUTO) 0.3 % (0.0-2.0); EOSINOPHILS # (AUTO) 0.1 /CMM (0.0-0.7); EOSINOPHILS % (AUTO) 1.5 % (0.0-6.0); HEMATOCRIT 37 % (39-51); HEMOGLOBIN 12.7 g/dL (13.5-17.5); LYMPHOCYTES # (AUTO) 1.9 /CMM (0.8-4.8); LYMPHOCYTES % (AUTO) 21.5 % (20.0-44.0); MEAN CORPUSCULAR HEMOGLOBIN 32 PG (26.0-33.0); MEAN CORPUSCULAR HGB CONC 34 g/dl (31.0-36.0); MEAN CORPUSCULAR VOLUME 93 fL (80-96); MONOCYTES # (AUTO) 0.6 /CMM (0.1-1.30); MONOCYTES % (AUTO) 6.5 % (2.0-12.0); NEUTROPHILS # (AUTO) 6.3 /CMM (1.8-8.9); NEUTROPHILS % (AUTO) 70.2 % (43.0-81.0); PLATELET COUNT (AUTO) 202 /CMM (150-450); RDW COEFFICIENT OF VARIATION 13.9 (11.5-15.0); RED BLOOD CELL COUNT(AUTO) 3.96 MIL/uL (4.5-6.0)
[2017-04-08 21:58] LABS: APPEARANCE,URINE SL CLOUDY (CLEAR); BILIRUBIN,URINE NEGATIVE (NEGATIVE); BLOOD, URINE 1+ Ery/uL (NEGATIVE); COLOR,URINE YELLOW (YELLOW); KETONES,URINE NEGATIVE (NEGATIVE); LEUKOCYTE ESTERASE ,URINE NEGATIVE (NEGATIVE); NITRITE, URINE NEGATIVE (NEGATIVE); PH,URINE 5.5 (5.0-8.0); PROTEIN,URINE 3+ mg/dl (NEGATIVE); UGLUCOSE NEGATIVE (NEGATIVE); UROBILINOGEN,URINE 0.2 EU/dL (0.2)
[2017-04-08] MEDS ORDERED: IV NS 0.9% 1,000 ML BAG IV ONE ×3 (22:00→22:30)
[2017-04-08] MEDS ORDERED: NALOXONE HCL 0.4 MG/ML AMPUL IV ONE (22:00)
[2017-04-08 22:10] LABS: CALCIUM, SERUM 8.3 mg/dL (8.5-10.1); CREATININE 3.1 mg/dL (0.6-1.3); POTASSIUM 3.9 mmol/L (3.5-5.1)
[2017-04-08 22:12] LABS: BACTERIA,URINE Rare /HPF (None Seen); SQUAMOUS EPITHELIAL CELL,UR 0-2 /HPF (None Seen); URINE AMORPHOUS URATE Many /HPF (None Seen); WBC,URINE 0-2 /HPF (0-3)
[2017-04-08 22:14] LABS: ALBUMIN 2.5 g/dL (3.4-5.0); BILIRUBIN,DIRECT 0.1 mg/dL (0.0-0.2); BILIRUBIN,TOTAL 0.3 mg/dL (0.2-1.0); SALICYLATE 3.1 mg/dL (2.8-20.0); TOTAL PROTEIN, SERUM 6.5 g/dL (6.4-8.2)
[2017-04-08] MEDS ORDERED: PIPERACILLIN /TAZOBACTAM 3.375 G in IV D5W 50 ML IV ONE (22:30)
[2017-04-08] MEDS ORDERED: VANCOMYCIN 1 GM in IV D5W 250 ML IV ONE (22:30)
--- NOTE | 2017-04-08 23:01 | NUR ---
CALLED FOR ICU BED
--- NOTE | 2017-04-08 23:15 | NUR ---
ICU 256
[2017-04-08] MEDS ORDERED: VANCOMYCIN 1 GM VIAL ONE (23:17)
[2017-04-08] MEDS ORDERED: PIPERACILLIN /TAZOBACTAM 3.375 G VIAL IV ONE (23:17)
[2017-04-08] MEDS ORDERED: ONDANSETRON HCL/PF 4 MG/2 ML VIAL IVP PRN (23:30)
[2017-04-08] MEDS ORDERED: Z GUARD REMEDY 2 OZ OINT TP PRN (23:30)
[2017-04-08] MEDS ORDERED: ZOLPIDEM TARTRATE 5 MG TABLET PO PRN (23:30)
[2017-04-08] MEDS ORDERED: PANTOPRAZOLE 40 MG VIAL IV ONE (23:30)
[2017-04-08] MEDS ORDERED: ACETAMINOPHEN 325 MG TABLET PO PRN (23:30)
[2017-04-09] VITALS (35 sets, daily range): BP systolic 77–141; BP diastolic 46–83
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
[2017-04-09] MEDS: IV NS 0.9% 1,000 ML IV PRN ×4 (00:17→23:10)
[2017-04-09] MEDS: ENOXAPARIN SODIUM 40 MG/0.4 ML DISP.SYRIN SQ SCH ×2 (00:17→23:04)
--- NOTE | 2017-04-09 00:30 | NUR ---
MEDICAID ELIGIBILITY SPECIALIST ABG DONE. BP REMAINS IN THE 80'S BUT MAP >65. WILL ENDORSE RESULTS TO DR MACDONALD.
[2017-04-09 00:32] LABS: ABG BASE EXCESS -9.3 mmol/L; ABG OXYGEN SATURATION 94.8 % (92.0-98.5); ABG PCO2 33.2 mmHg (35.0-45.0); ABG PH 7.302 (7.350-7.450); ABG PO2 84.9 mmHg (75.0-100.0); AaDO2 104.4 mmHg; COHb 1.3 % (0.5-1.5); MetHb 0.5 % (0.0-1.5); O2Hb 93.1 % (94.0-97.0); SITE, ABG Left Radial; VENT MODE, BG NASAL CANNULA
--- NOTE | 2017-04-09 04:14 | NUR ---
RIGHT OF WAY AGENT DF PT BP LOW @ 77/49,80/47,82/51 MAP 61-65. DR WORTHINGTON AT BEDSIDE. NO FURTHER ORDERS.OKAY TO HAVE MAP 60-65. PER ORDERS CALL FOR SUSTAINED MAP BELOW 65.
[2017-04-09 05:28] LABS: BASOPHILS % (AUTO) 0.5 % (0.0-2.0); EOSINOPHILS % (AUTO) 0.2 % (0.0-6.0); HEMATOCRIT 33 % (39-51); HEMOGLOBIN 11.3 g/dL (13.5-17.5); LYMPHOCYTES # (AUTO) 1.4 /CMM (0.8-4.8); LYMPHOCYTES % (AUTO) 16.9 % (20.0-44.0); MEAN CORPUSCULAR HEMOGLOBIN 32 PG (26.0-33.0); MEAN CORPUSCULAR HGB CONC 34 g/dl (31.0-36.0); MEAN CORPUSCULAR VOLUME 94 fL (80-96); MONOCYTES # (AUTO) 0.5 /CMM (0.1-1.30); MONOCYTES % (AUTO) 6.2 % (2.0-12.0); NEUTROPHILS # (AUTO) 6.2 /CMM (1.8-8.9); NEUTROPHILS % (AUTO) 76.2 % (43.0-81.0); PLATELET COUNT (AUTO) 197 /CMM (150-450); RDW COEFFICIENT OF VARIATION 14.1 (11.5-15.0); RED BLOOD CELL COUNT(AUTO) 3.55 MIL/uL (4.5-6.0); WHITE BLOOD COUNT (AUTO) 8.2 K/uL (4.3-11.0)
[2017-04-09 06:00] LABS: BILIRUBIN,TOTAL 0.4 mg/dL (0.2-1.0); CALCIUM, SERUM 7.9 mg/dL (8.5-10.1); CREATININE 3.2 mg/dL (0.6-1.3); MAGNESIUM 2.3 mg/dL (1.8-2.4); PHOSPHORUS 5.1 mg/dL (2.5-4.9); POTASSIUM 4.7 mmol/L (3.5-5.1); TOTAL PROTEIN, SERUM 5.7 g/dL (6.4-8.2)
--- NOTE | 2017-04-09 07:30 | NUR ---
icu initial note- received report from lul, pt was received asleep, arouses to touch/pain stimuli , able to answer yes and no questions, pt has 1:1 sitter at this time, pt is on 4l nc, sating well, no s/s of resp.distress or discomfort noted at this time, pt is on bedside monitor showing sr w/pvc in 80's, pt is currently npo at this time, pt has f/c draining shanika urine to gravity, pt has rac # 18, lac #18g, running ns @125ml/hr, c/d/i/patent, flushing well, no s/s of infection/ infiltration noted at this time, pt has bilateral wrist restraints in place d/t pt being extremely agitated, pt does not verbalize that he wants to harm himself or others, pt is noted with l foot wound, wound consult ordered, at this time pt is extremely agitated at this time, all safety measures in place at all times, call light within easy reach, will monitor pt closely for changes
--- NOTE | 2017-04-09 08:42 | NUR ---
WOUND CARE CONSULT: PT NOT SEEN YET FOR SKIN ASSESSMENT DUE TO PT BEING COMBATIVE WHEN AWAKENED PER NURSING STAFF. ALL SKIN PROTECTION MEASURES IN PLACE AND DISCUSSED WITH NURSING STAFF. CURRENT SUSAN SCORE IS 13. MD IN AGREEMENT WITH PLAN OF CARE.
[2017-04-09 09:30] LABS: ABG BASE EXCESS -9.5 mmol/L; ABG OXYGEN SATURATION 89.9 % (92.0-98.5); ABG PCO2 33.8 mmHg (35.0-45.0); ABG PH 7.294 (7.350-7.450); ABG PO2 65.2 mmHg (75.0-100.0); AaDO2 94.6 mmHg; COHb 0.3 % (0.5-1.5); MetHb 0.7 % (0.0-1.5); SITE, ABG Right Radial; VENT MODE, BG NC 3 L
--- NOTE | 2017-04-09 10:15 | NUR ---
icu note- pt is awake, able to follow simple commands, pt able to drink water.
[2017-04-09] MEDS: PANTOPRAZOLE 40 MG VIAL IV SCH (11:01)
[2017-04-09] MEDS: GEMFIBROZIL 600 MG TABLET PO SCH (15:32)
[2017-04-09 15:50] LABS: ABG BASE EXCESS -7.2 mmol/L; ABG OXYGEN SATURATION 96.3 % (92.0-98.5); ABG PCO2 31.5 mmHg (35.0-45.0); ABG PH 7.354 (7.350-7.450); ABG PO2 96.6 mmHg (75.0-100.0); AaDO2 80.3 mmHg; COHb 0.4 % (0.5-1.5); MetHb 0.3 % (0.0-1.5); O2Hb 95.6 % (94.0-97.0); SITE, ABG Right Radial; VENT MODE, BG N/C
[2017-04-09] MEDS: QUETIAPINE FUMARATE 100 MG TABLET PO SCH (17:00)
[2017-04-09] MEDS: CLONIDINE HCL 0.1 MG TABLET PO SCH (17:00)
[2017-04-09] MEDS: METOPROLOL TARTRATE 25 MG TABLET PO SCH (17:00)
[2017-04-09] MEDS: SIMVASTATIN 20 MG TABLET PO SCH (17:10)
--- NOTE | 2017-04-09 19:30 | NUR ---
RN INITIAL NOTES RECEIVED PT SLEEPING ON BED, DROWSY BUT EASILY AROUSABLE TO NAME AND TOUCH, A/O X 2-3. ON 3L NASAL CANNULA SATURATING WELL, NO S/S OF RESP DISTRESS. ST ON THE MONITOR, HR 80'S. PALACIOS CATH INTACT. RIGHT AC 18G AND LEFT AC 18 WITH NS @ 125MLS/HR, FLUSHED AND PATENT, NO S/S OF INFILTRATION, INFECTION, DRESSINGS CDI. PT DENIES ANY SUICIDAL THOUGHTS, ABLE TO FOLLOW COMMANDS, WITH CALM DEMEANOR. BED LOW AND LOCKED, SIDERAILS UP, CALL LIGHT WITHIN REACH, BED ALARM ON. WILL MONITOR
[2017-04-10] VITALS (22 sets, daily range): BP systolic 93–158; BP diastolic 53–90
[2017-04-10 05:13] LABS: BASOPHILS # (AUTO) 0.1 /CMM (0.0-0.2); BASOPHILS % (AUTO) 0.5 % (0.0-2.0); EOSINOPHILS # (AUTO) 0.1 /CMM (0.0-0.7); EOSINOPHILS % (AUTO) 1.3 % (0.0-6.0); HEMATOCRIT 37 % (39-51); LYMPHOCYTES # (AUTO) 1.5 /CMM (0.8-4.8); LYMPHOCYTES % (AUTO) 13.9 % (20.0-44.0); MEAN CORPUSCULAR HEMOGLOBIN 33 PG (26.0-33.0); MEAN CORPUSCULAR HGB CONC 35 g/dl (31.0-36.0); MEAN CORPUSCULAR VOLUME 93 fL (80-96); MONOCYTES # (AUTO) 0.7 /CMM (0.1-1.30); MONOCYTES % (AUTO) 6.2 % (2.0-12.0); NEUTROPHILS # (AUTO) 8.5 /CMM (1.8-8.9); NEUTROPHILS % (AUTO) 78.1 % (43.0-81.0); PLATELET COUNT (AUTO) 204 /CMM (150-450); RED BLOOD CELL COUNT(AUTO) 3.99 MIL/uL (4.5-6.0); WHITE BLOOD COUNT (AUTO) 10.9 K/uL (4.3-11.0)
[2017-04-10 05:26] LABS: CALCIUM, SERUM 8.6 mg/dL (8.5-10.1); CREATININE 2.4 mg/dL (0.6-1.3); MAGNESIUM 1.9 mg/dL (1.8-2.4); PHOSPHORUS 3.2 mg/dL (2.5-4.9); POTASSIUM 4.3 mmol/L (3.5-5.1)
--- NOTE | 2017-04-10 06:30 | NUR ---
RN CLOSING NOTES PT REMAINS STABLE OF THE MOMENT. ALL DUE MEDS GIVEN, AM CARE PROVIDED. WILL ENDORSE ABY TO AM RN
[2017-04-10] MEDS: IV NS 0.9% 1,000 ML IV PRN ×2 (07:04→17:00)
--- NOTE | 2017-04-10 07:15 | NUR ---
ACTUARIAL CLERK NOTES RECEIVED PATIENT AWAKE ALERT X2 -3 , NOT IN ACUTE DISTRESS , TOLERATING NC @ 3LPM WITH SPO2 OF 100% , DENIES SOB , DISCOMFORT AND SI AT THIS TIME , SR 75 WITH PVC'S @ BEDSIDE MONITOR , FC DRAINING VIA GRAVITY , LAC # 18 WITH NS @ 125ML/HR INFUSING WELL , R AC # 18 PATENT AND INTACT SL , ALL NEEDS ATTENDED , BED ON LOW AND LOCKED POSITION , SIDE RAILS X2 ,CALL LIGHT WITHIN REACH , HOB @ 35 , WILL CONTINUE TO MONITOR
--- NOTE | 2017-04-10 08:35 | NUR ---
ROUTE DELIVERER NOTES SEEN AND EVALUATED BY DR MACDONALD , DISCUSSED LABS , NOTED WITH SIGNS OF WITHDRAWALS , F/U DIET PT IS MORE AWAKE ALERT X3 , DENIES ANY SUICIDAL IDEATION AT THIS TIME , SPO2 OF 100% VIA 3LPM NC , PER MD OK TO START ON CARDIAC DIET , AND OK TO TRANSFER TO LOWER LEVEL OF CARE Addendum: 04/10/17 at 0947 by BRIANA RODRÍGUEZ RN RECEIVED VERBAL ORDER TO START ATIVAN 1 MG Q2 PRN DUE TO EPISODES OF WITHDRAWALS
[2017-04-10] MEDS: PANTOPRAZOLE 40 MG VIAL IV SCH (08:46)
[2017-04-10] MEDS: GEMFIBROZIL 600 MG TABLET PO SCH ×2 (08:46→16:28)
[2017-04-10] MEDS: ASPIRIN EC 81 MG TABLET.DR PO SCH (08:47)
[2017-04-10] MEDS: QUETIAPINE FUMARATE 100 MG TABLET PO SCH ×3 (08:47→16:29)
[2017-04-10] MEDS: LamoTRIgine 100 MG TABLET PO SCH (08:47)
[2017-04-10] MEDS: AMLODIPINE BESYLATE 10 MG TABLET PO SCH (08:47)
[2017-04-10] MEDS: METOPROLOL TARTRATE 25 MG TABLET PO SCH ×2 (08:47→16:28)
[2017-04-10] MEDS: ESCITALOPRAM OXALATE (10 MG) 10 MG TABLET PO SCH (08:47)
[2017-04-10] MEDS: CLONIDINE HCL 0.1 MG TABLET PO SCH ×2 (08:47→16:28)
[2017-04-10] MEDS ORDERED: LORAZEPAM INJ 2 MG/ML VIAL IV PRN (09:00)
[2017-04-10] MEDS ORDERED: LamoTRIgine 100 MG TABLET PO SCH (09:00)
--- NOTE | 2017-04-10 09:00 | NUR ---
ASSEMBLING INSPECTOR NOTES LEXAPRO AND SEROQUEL HELD PATIENT IS MORE AWAKE X2-3 NOTED WITH MILD DROWSINESS ,
--- NOTE | 2017-04-10 10:30 | NUR ---
LEARNING AND DEVELOPMENT COORDINATOR NOTES SEEN AND EVALUATED BY DR SHERIF ROSALES , DISCUSSED LABS , AFEBRILE , V/S STABLE , ON IVF OF NS @ 125ML/HR , STARTED PATIENT ON CARDIAC DIET TOLERATING WELL CONSUMED 100% WITH ADEQUATE FLUID INTAKE , WITH GOOD URINE OUTPUT 350 ML X2 HOURS , MD AWARE
--- NOTE | 2017-04-10 12:15 | NUR ---
INFORMATION MANAGEMENT MANAGER NOTES FACE SHEET FAXED TO [facility] FOR F/U PSYCH CONSULT , MD FOR TODAY IS DR NUGENT ,
--- NOTE | 2017-04-10 12:45 | NUR ---
BEN DAY ARTIST NOTES PARTIAL BATH DONE , PATIENT AWAKE ALERT X3 , DENIES ANY DISCOMFORT , SUICIDAL IDEATION AND SOB AT THIS TIME , V/S STABLE , OFFERED BEDSIDE COMMODE , NOTED WITH STEADY GAIT , PALACIOS CATHETER REMOVED , WILL CONTINUE TO MONITOR
[2017-04-10] MEDS: ISOSORBIDE MONONITRATE (30MG) 30 MG TAB.SR.24H PO SCH (13:25)
--- NOTE | 2017-04-10 15:19 | NUR ---
Social service consult requested by Dr. Parker for homelessness and suicidal attempt. Pt. is a 52 year old male who was admitted to [facility] Intensive Care unit for an overdose and altered mental status. Pt. went to the police station and informed them he was suicidal and took several Seroquel pills. GERARDO is familiar with pt. from previous admissions. GERARDO met with pt. bedside. Pt. is alert and oriented x 4. Pt. stated he is too depressed and couldn't handle being in shelters and decided to overdose on Seroquel. Pt. receives SSI benefits and has Section 8 housing. Pt. requested for SW to contact his case liner Erin Restrepo from [employer] regarding placement. Pt. was residing in a sober living but was kicked out a couple of months ago. Pt. has been homeless since then. Pt. was discharged to [facility] during the last admission a couple months ago. Pt. states he is feeling somewhat suicidal but does not have a plan. Pt. denies homicidal ideations and visual/auditory hallucinations at this time. Pt. denies drug use but drinks Shannan. Pt. has family but no contact with them. GERARDO informed pt. that a psychiatrist will be seeing him soon. GERARDO called pt's housing case liner Erin per pt's request and informed her that pt. is currently at [facility]. She requested for GERARDO to give him her contact information if he doesn't have it anymore.
--- NOTE | 2017-04-10 16:30 | NUR ---
BALANCE SCREWHEAD POLISHER NOTES METOPROLOL 25 MG HELD DUE TO HR OF 55-57 BMP SEROQUEL HELD PT VERBALIZED THAT HE FEELS DROWSY . WILL CONTINUE TO MONITOR
[2017-04-10] MEDS: SIMVASTATIN 20 MG TABLET PO SCH (17:00)
--- NOTE | 2017-04-10 17:12 | NUR ---
OIL FIELD OPERATOR NOTES PATIENT ABLE TO URINATE POST FC REMOVAL , NOTED WITH 300ML CLEAR YELLOW URINE , WILL CONTINUE TO MONITOR
--- NOTE | 2017-04-10 19:50 | NUR ---
RECEIVED REPORT FROM WEIGHT AND BALANCE CONTROL AGENTJULIÁN FLYNN.
--- NOTE | 2017-04-10 19:50 | NUR ---
RN NOTES GAVE REPORT TO DEBRA RN BEVERLEY FOR PATIENT TRANSFER TO ROOM 116-A
--- NOTE | 2017-04-10 20:10 | NUR ---
RN NOTES RECEIVED PATIENT AND BELONGINGS FROM ICU. PATIENT IN STABLE CONDITION AT THIS TIME. VITAL SIGNS ARE STABLE AND WNL.
--- NOTE | 2017-04-10 20:10 | NUR ---
RN NOTES PT TRANSFERRED VIA ACLS PROTOCOL
[2017-04-10] MEDS: ENOXAPARIN SODIUM 40 MG/0.4 ML DISP.SYRIN SQ SCH (22:59)
[2017-04-11] VITALS: BP 106/65
[2017-04-11 04:00] VITALS: BP 128/74
[2017-04-11] MEDS: IV NS 0.9% 1,000 ML IV PRN ×2 (05:09→18:46)
[2017-04-11 07:10] LABS: BASOPHILS % (AUTO) 0.3 % (0.0-2.0); EOSINOPHILS # (AUTO) 0.3 /CMM (0.0-0.7); EOSINOPHILS % (AUTO) 3.7 % (0.0-6.0); HEMATOCRIT 37 % (39-51); HEMOGLOBIN 12.7 g/dL (13.5-17.5); LYMPHOCYTES # (AUTO) 1.5 /CMM (0.8-4.8); LYMPHOCYTES % (AUTO) 19.2 % (20.0-44.0); MEAN CORPUSCULAR HEMOGLOBIN 32 PG (26.0-33.0); MEAN CORPUSCULAR HGB CONC 34 g/dl (31.0-36.0); MEAN CORPUSCULAR VOLUME 95 fL (80-96); MONOCYTES # (AUTO) 0.5 /CMM (0.1-1.30); MONOCYTES % (AUTO) 5.8 % (2.0-12.0); NEUTROPHILS # (AUTO) 5.7 /CMM (1.8-8.9); PLATELET COUNT (AUTO) 217 /CMM (150-450); RDW COEFFICIENT OF VARIATION 13.9 (11.5-15.0); RED BLOOD CELL COUNT(AUTO) 3.92 MIL/uL (4.5-6.0)
[2017-04-11 07:34] LABS: CALCIUM, SERUM 8.1 mg/dL (8.5-10.1); CREATININE 2.2 mg/dL (0.6-1.3); MAGNESIUM 1.7 mg/dL (1.8-2.4); PHOSPHORUS 3.2 mg/dL (2.5-4.9); POTASSIUM 4.5 mmol/L (3.5-5.1)
--- NOTE | 2017-04-11 07:35 | NUR ---
WASHERY ENGINEER NOTE: PATIENT IN BED, AWAKE, AND VERBALLY RESPONSIVE. RESPIRATION EVEN AND UNLABORED. NO SOB. ON WRECKING SUPERVISOR SR= 65. (L) AND (R) AC IV LINE NOTED INTACT AND PATENT. (L) AC W/ NS @75CC/HR. ON SITTER 1:1 FOR SAFETY. DENIED HAVING ANY SUICIDAL IDEATION. NOT FEELING TOO MUCH DEPRESS. BED ALARM AND LOCKED AT ALL TIMES. HOB ELEVATED. CALL LIGHT WITHIN REACH. BED ALARM AND LOCKED AT ALL TIMES.
[2017-04-11 07:53] LABS: TROPONIN I 0.566 ng/mL (0.00-0.056)
[2017-04-11 08:00] VITALS: BP 142/77
[2017-04-11] MEDS: PANTOPRAZOLE 40 MG VIAL IV SCH (08:20)
[2017-04-11] MEDS: GEMFIBROZIL 600 MG TABLET PO SCH ×2 (08:20→17:11)
[2017-04-11] MEDS: CLONIDINE HCL 0.1 MG TABLET PO SCH ×2 (08:21→17:11)
[2017-04-11] MEDS: ASPIRIN EC 81 MG TABLET.DR PO SCH (08:21)
[2017-04-11] MEDS: LamoTRIgine 100 MG TABLET PO SCH (08:22)
[2017-04-11] MEDS: ESCITALOPRAM OXALATE (10 MG) 10 MG TABLET PO SCH (08:22)
[2017-04-11] MEDS: QUETIAPINE FUMARATE 100 MG TABLET PO SCH ×3 (08:23→17:11)
[2017-04-11] MEDS: AMLODIPINE BESYLATE 10 MG TABLET PO SCH (08:23)
[2017-04-11] MEDS: METOPROLOL TARTRATE 25 MG TABLET PO SCH ×2 (08:23→17:21)
[2017-04-11] MEDS: CLOTRIMAZOLE/BETAMETASONE DIPROPIONATE 15 GM TUBE TP SCH ×2 (08:24→17:10)
--- NOTE | 2017-04-11 08:30 | NUR ---
PHOTOGRAPHIC LITHOGRAPHER NOTE: DR. MACDONALD WAS MADE AWARE OF THE PATIENT'S TROPONIN LEVEL 0.566. PATIENT DENIED HAVING ANY CHEST PAIN. MD WITH NO NEW ORDER.
[2017-04-11] MEDS: ISOSORBIDE MONONITRATE (30MG) 30 MG TAB.SR.24H PO SCH (09:28)
--- NOTE | 2017-04-11 11:53 | NUR ---
RN MED-SURG NOTE: PATIENT REQUESTED TO GET SHOWER. INFORMED DR. MACDONALD ABOUT IT AND HE GAVE ORDER OK TO SHOWER. PATIENT MADE AWARE. Addendum: 04/11/17 at 1956 by HENRY MENDES RN PERSONAL DEVELOPMENT MENTOR NOTE:
[2017-04-11 12:00] VITALS: BP 119/70
[2017-04-11] MEDS ORDERED: Magnesium 1GM/D5W 100ML PREMIX 100 ML IV SCH (12:00)
[2017-04-11 16:00] VITALS: BP_SYST 144; BP_SYST 146; BP_DIAS 86
[2017-04-11] MEDS: SIMVASTATIN 20 MG TABLET PO SCH (17:11)
--- NOTE | 2017-04-11 19:48 | NUR ---
OSTRICH FARMER NOTE: PATIENT IN BED, AWAKE, AND VERBALLY RESPONSIVE. RESPIRATION EVEN AND UNLABORED. NO SOB. ON CURRICULUM WRITER SB = 57 WHEN ASLEEP. (L) AND (R) AC IV LINE NOTED INTACT AND PATENT. (L) AC W/ NS @75CC/HR. ON SITTER 1:1 FOR SAFETY. NO SUICIDAL IDEATION NOTED. COOPERATIVE DURING THE SHIFT. BED ALARM AND LOCKED AT ALL TIMES. HOB ELEVATED. CALL LIGHT WITHIN REACH. BED ALARM AND LOCKED AT ALL TIMES. REPORT GIVEN TO JULIÁN COLE FOR CONTINUITY OF CARE.
[2017-04-11 20:00] VITALS: BP 118/67
--- NOTE | 2017-04-11 20:34 | NUR ---
RN NOTE RECEIVED PATIENT IN THE BED, ASLEEP, EASILY AWAKENED, NO RESPIRATORY DISTRESS NOTED, DX TOXIC ENCEPHALOPATHY, RAC 18 GAUGE, LAC 18 GAUGE NOTED, NS AT 75 ML/HR, BED ALARM IS ACTIVATED, BED IN THE LOWEST POSITION, SIDE RAILS UP X 2, ALL BELONGINGS WITHIN REACH, KENYA CORRALES IS BY BEDSIDE, WILL CONTINUE TO MONITOR
[2017-04-12] VITALS: BP 125/77
[2017-04-12] MEDS: ENOXAPARIN SODIUM 40 MG/0.4 ML DISP.SYRIN SQ SCH (00:07)
[2017-04-12 04:00] VITALS: BP 108/70
--- NOTE | 2017-04-12 06:52 | NUR ---
RN NOTE PATIENT IS STABLE THROUGHT MY SHIFT, NO RESPIRATORY DISTRESS NOTED, ALERT/ORIENTED X 4, LAC 18 ANTOINETTE, RAC 18 GAUGE, NO S/S OF INFILTRATION, INFECTION, RESTED WELL, NO AGGRESSION, DENIES PAIN OR DISCOMFORT, ONGOING FLUIDS IV, TOLERATES WELL, SITTER 1:1, ALL SAFETY PRECAUTIONS TAKEN, BED IN THE LOWEST POSITION, CALL LIGHT WITHIN REACH, BED ALARM ACTIVATED, SIDE RAILS UP X 2, ENDORSED REPORT TO AM NURSE
[2017-04-12 07:18] LABS: CALCIUM, SERUM 8.1 mg/dL (8.5-10.1); MAGNESIUM 1.7 mg/dL (1.8-2.4); POTASSIUM 4.7 mmol/L (3.5-5.1)
--- NOTE | 2017-04-12 07:56 | NUR ---
WHEAT SHIPPER NOTES RECEIVED PT ON BED SLEEPING, A/0 X4. ON NASAL CANNULA 2LPM SATURATING WELL. NO SIGN OF RESPI DISTRESS. IV ACCESS ON LAC NS @ 75CC/HR RUNNING WELL. ON TELE MONITOR HR 70-72. HEAD OF BED ELEVATED. SIDE RAILS UP. CALL LIGHT WITHIN REACH. WILL CONTINUE TO MONITOR PT CLOSELY.
[2017-04-12 08:00] VITALS: BP 131/74
[2017-04-12] MEDS: ASPIRIN EC 81 MG TABLET.DR PO SCH (08:20)
[2017-04-12] MEDS: PANTOPRAZOLE 40 MG VIAL IV SCH (08:20)
[2017-04-12] MEDS: GEMFIBROZIL 600 MG TABLET PO SCH (08:20)
[2017-04-12] MEDS: CLONIDINE HCL 0.1 MG TABLET PO SCH (08:22)
[2017-04-12] MEDS: LamoTRIgine 100 MG TABLET PO SCH (08:22)
[2017-04-12] MEDS: ISOSORBIDE MONONITRATE (30MG) 30 MG TAB.SR.24H PO SCH (08:22)
[2017-04-12] MEDS: AMLODIPINE BESYLATE 10 MG TABLET PO SCH (08:23)
[2017-04-12] MEDS: ESCITALOPRAM OXALATE (10 MG) 10 MG TABLET PO SCH (08:24)
[2017-04-12] MEDS: QUETIAPINE FUMARATE 100 MG TABLET PO SCH ×2 (08:24→12:03)
[2017-04-12] MEDS: METOPROLOL TARTRATE 25 MG TABLET PO SCH (08:24)
[2017-04-12] MEDS: CLOTRIMAZOLE/BETAMETASONE DIPROPIONATE 15 GM TUBE TP SCH (08:26)
[2017-04-12] MEDS: IV NS 0.9% 1,000 ML IV PRN (08:59)
--- NOTE | 2017-04-12 10:05 | NUR ---
GERARDO sent clinicals to Arelis in intake at [facility] via fax . GERARDO called Arelis and confirmed that she received the fax. She will review the packet and follow up with GERARDO.
[2017-04-12] MEDS ORDERED: Magnesium 1GM/D5W 100ML PREMIX 100 ML IV SCH (11:23)
--- NOTE | 2017-04-12 11:43 | NUR ---
Arelis from [facility] contacted GERARDO and informed her to call charge master specialist at [facility], [place] and the accepting doctor is Dr. Heath. GERARDO contacted charge master specialist Suri with JULIÁN Garcia present. CRN Suri informed GERARDO that they still need to review the case and to call back in 30 minutes to x [phone]. GERARDO gave the information to pt's JULIÁN Garcia and requested him to call the CRN at [place] in 30 minutes and to follow up with GERARDO after the phone call. GERARDO also met with pt. bedside to inform him the [facility] will most likely accept him and if he would like to go there. Pt. agreed.
[2017-04-12 12:00] VITALS: BP 115/64
--- NOTE | 2017-04-12 12:00 | NUR ---
ARMOR OFFICER NOTES PATIENT REFUSED TO HAVE THE WOUND PICTURE IN THE HEEL TAKEN.
--- NOTE | 2017-04-12 13:50 | NUR ---
SW met with pt. who is currently denying suicidal ideations at this time. Pt. was going to go on a voluntary basis to [facility] in [place], however he changed his mind. SW offered pt. winter senior care placement and pt. accepted. Pt. to be [facility] via taxi [facility] [address] [facility]. Homeless patient waiver form was signed by pt. and given to pt's RN Jose to place in pt's chart. No other social service needs are requested at this time. Pt. refused other Homeless resources except for list of winter senior care programs. SW is available if needed.
--- NOTE | 2017-04-12 17:08 | NUR ---
SECRETARY OF POLICE NOTES PT DISCHARGE STABLE. EXIT CARE DONE. ACCOMPANIED BY RN AND ELEVATING GRADER OPERATOR TO THE LOBBY. PT TRANSPORTED VIA TAXI.
== END 2017-04-12 16:41 | disposition home or self-care (01) | DRG 812 ==
LOC: ER 21:07 → ICU 23:08 → TELE1 04-10 20:04 → UNDODISIN 04-12 16:17
PROVIDERS: ADMIT Internal Medicine; ATTEND Internal Medicine
DX: T43.622A Poisoning by amphetamines, intentional self-harm, initial encounter (principal); J96.01 Acute respiratory failure with hypoxia; I21.A1 Myocardial infarction type 2; J69.0 Pneumonitis due to inhalation of food and vomit; G92 Toxic encephalopathy; I95.9 Hypotension, unspecified; E83.9 Disorder of mineral metabolism, unspecified; N17.9 Acute kidney failure, unspecified; E11.22 Type 2 diabetes mellitus with diabetic chronic kidney disease; F17.210 Nicotine dependence, cigarettes, uncomplicated; B35.3 Tinea pedis; E78.5 Hyperlipidemia, unspecified; N18.9 Chronic kidney disease, unspecified; I12.9 Hypertensive chronic kidney disease with stage 1 through stage 4 chronic kidney disease, or unspecified chronic kidney disease; Z59.0 Homelessness; F41.9 Anxiety disorder, unspecified; G40.909 Epilepsy, unspecified, not intractable, without status epilepticus; V89.2XXS Person injured in unspecified motor-vehicle accident, traffic, sequela; Y92.009 Unspecified place in unspecified non-institutional (private) residence as the place of occurrence of the external cause; Z72.89 Other problems related to lifestyle; Z86.73 Personal history of transient ischemic attack (TIA), and cerebral infarction without residual deficits; T14.8XXA Other injury of unspecified body region, initial encounter; F33.3 Major depressive disorder, recurrent, severe with psychotic symptoms; F15.159 Other stimulant abuse with stimulant-induced psychotic disorder, unspecified; F15.14 Other stimulant abuse with stimulant-induced mood disorder; T40.7X2A Poisoning by cannabis (derivatives), intentional self-harm, initial encounter
CPT/HCPCS: 36415; 36600; 70450-TC; 71045-TC; 80048-TC; 80053-TC; 80061-TC; 80076-TC; 80305; 81000-TC; 82803-TC; 82962-TC; 83605-TC; 83735-TC; 84100-TC; 84484-TC; 85025-TC; 87040-TC; 87081-TC; 93307-TC; A4606; A6402; C9113; G0480; J1650; J2310; J2543; J3370; J3475; J7030; J7060; Z7610

== ENCOUNTER 2017-04-22 19:06 | Emergency (ER) | payer OTHER ==
[~2017-04-22] VITALS: Ht 177.8 cm; Wt 86.2 kg
--- NOTE | 2017-04-22 19:15 | NUR ---
PT AMBULATORY TO ER BED 7. PT BIB SELF C/O SI/HI WANTING TO HURT HIMSELF BY CUTTING HIMSELF. SUICIDE PRECAUTIONS IN PLACE. PT PLACED IN GOWN AND ON CUFF FOLDER. VSS/RESP EVEN UNLABORED/NAD NOTED/SKIN WARM AND DRY/DENIES N-V-D/ AFEBRILE/AOX4. AWAITING MD DSOUZA. Addendum: 04/22/17 at 9 by HILARIO PT COOPERATIVE AND CALM AT THIS TIME.
--- NOTE | 2017-04-22 19:20 | NUR ---
AT BEDSIDE FOR EVAL.
[2017-04-22] MEDS ORDERED: LORAZEPAM 1 MG TABLET PO ONE (19:30)
--- NOTE | 2017-04-22 19:32 | NUR ---
LAB AT BEDSIDE FOR DRAW.
--- NOTE | 2017-04-22 19:32 | NUR ---
URINE OBTIANED ON ARRIVAL AND SENT TO THE LAB.
[2017-04-22] MEDS ORDERED: LORAZEPAM 1 MG TABLET ONE (19:34)
[2017-04-22 19:41] LABS: APPEARANCE,URINE Clear (CLEAR); BILIRUBIN,URINE SMALL (NEGATIVE); BLOOD, URINE Trace-lysed Ery/uL (NEGATIVE); COLOR,URINE Yellow (YELLOW); KETONES,URINE Trace (NEGATIVE); LEUKOCYTE ESTERASE ,URINE Negative (NEGATIVE); NITRITE, URINE Negative (NEGATIVE); PH,URINE 5.5 (5.0-8.0); PROTEIN,URINE >=300 mg/dl (NEGATIVE); UGLUCOSE Negative (NEGATIVE)
[2017-04-22 19:48] LABS: BASOPHILS # (AUTO) 0.1 /CMM (0.0-0.2); BASOPHILS % (AUTO) 0.8 % (0.0-2.0); EOSINOPHILS # (AUTO) 0.2 /CMM (0.0-0.7); EOSINOPHILS % (AUTO) 2.7 % (0.0-6.0); HEMATOCRIT 44 % (39-51); HEMOGLOBIN 14.8 g/dL (13.5-17.5); LYMPHOCYTES # (AUTO) 1.8 /CMM (0.8-4.8); LYMPHOCYTES % (AUTO) 22.6 % (20.0-44.0); MEAN CORPUSCULAR HEMOGLOBIN 31 PG (26.0-33.0); MEAN CORPUSCULAR HGB CONC 34 g/dl (31.0-36.0); MEAN CORPUSCULAR VOLUME 92 fL (80-96); MONOCYTES # (AUTO) 0.6 /CMM (0.1-1.30); MONOCYTES % (AUTO) 7.7 % (2.0-12.0); NEUTROPHILS # (AUTO) 5.4 /CMM (1.8-8.9); NEUTROPHILS % (AUTO) 66.2 % (43.0-81.0); PLATELET COUNT (AUTO) 303 /CMM (150-450); RDW COEFFICIENT OF VARIATION 13.1 (11.5-15.0); RED BLOOD CELL COUNT(AUTO) 4.74 MIL/uL (4.5-6.0); WHITE BLOOD COUNT (AUTO) 8.1 K/uL (4.3-11.0)
[2017-04-22 19:51] LABS: CALCIUM, SERUM 8.4 mg/dL (8.5-10.1); CARBON DIOXIDE 27 mmol/L (21-32); CHLORIDE 105 mmol/L (98-107); CREATININE 2.1 mg/dL (0.6-1.3); GLUCOSE 96 mg/dL (74-106); POTASSIUM 4.2 mmol/L (3.5-5.1); SODIUM SERUM 139 mmol/L (136-145); UREA NITROGEN, BLOOD 24 mg/dL (7-18)
[2017-04-22 19:52] LABS: BACTERIA,URINE Few /HPF (None Seen); SQUAMOUS EPITHELIAL CELL,UR Few /HPF (None Seen); URINE AMORPHOUS URATE Moderate /HPF (None Seen); WBC,URINE 0-2 /HPF (0-3)
[2017-04-22 19:57] LABS: ACETAMINOPHEN < 2 ug/ml (10-30); ALANINE AMINOTRANSFERASE 30 U/L (12-78); ALBUMIN 2.7 g/dL (3.4-5.0); ALCOHOL, BLOOD < 3 mg/dL (0-0); ALKALINE PHOSPHATASE 76 U/L (46-116); ASPARTATE AMINOTRANSFERASE 30 U/L (15-37); BILIRUBIN,DIRECT 0.1 mg/dL (0.0-0.2); BILIRUBIN,TOTAL 0.3 mg/dL (0.2-1.0); SALICYLATE 3.1 mg/dL (2.8-20.0); TOTAL PROTEIN, SERUM 7.4 g/dL (6.4-8.2)
--- NOTE | 2017-04-22 20:31 | NUR ---
CALLED [facility] FOR PSYCH EVAL, ETA WITHIN THE HOUR
--- NOTE | 2017-04-22 21:00 | NUR ---
FORMAL SERVICE WAITER AT BEDSIDE.
--- NOTE | 2017-04-22 23:15 | NUR ---
ACCEPTED TO [facility] UNDER DR. RAPHAEL. REPORT NUMBER [id number] FOR ME[facility]or[facility] NURSE
--- NOTE | 2017-04-22 23:37 | NUR ---
REPORT GIVEN TO BEVOR FOR ABY.
--- NOTE | 2017-04-23 01:38 | NUR ---
ASSUMED D/C CARE ONLY FROM THE ER AT THIS TIME ON BEHALF OF PRIMARY NURSE RAQUEL. TO BE TRANSFERED TO [place]. NAD NOTED AT THIS TIME. RESP EVEN AND UNLABORED.
[2017-04-23 01:40] VITALS: BP 161/98
== END 2017-04-23 01:43 | disposition short-term general hospital (02) ==
LOC: ER 19:12
DX: F29 Unspecified psychosis not due to a substance or known physiological condition (principal); N28.9 Disorder of kidney and ureter, unspecified; F31.9 Bipolar disorder, unspecified; F41.9 Anxiety disorder, unspecified; G40.909 Epilepsy, unspecified, not intractable, without status epilepticus; I10 Essential (primary) hypertension; R45.850 Homicidal ideations; R45.851 Suicidal ideations; F10.10 Alcohol abuse, uncomplicated; F17.200 Nicotine dependence, unspecified, uncomplicated; F20.9 Schizophrenia, unspecified; Z79.82 Long term (current) use of aspirin
CPT/HCPCS: 36415; 80048; 80076; 80305; 80329; 81001; 85025; 99285; A4606; G0480 ×2; Z7610; 81000-TC